=== PATIENT | male | born 1955 | race Caucasian/White ===

== ENCOUNTER 2017-01-22 07:02 | Emergency (ER) | payer MEDICARE, MEDICAID ==
[~2017-01-22 07:02] MED LIST: /MOXI40TA PO; ALDA25TA2 PO; BUSP30TA PO; LASI20TA PO; PAXI30TA2 PO; PHEN32.4 PO; VENL37TA PO; ZEST10TA4 PO
[2017-01-22] MEDS ORDERED: FE G325T PO (07:50)
[2017-01-22] MEDS ORDERED: LOPR1TAB6 PO (07:50)
[2017-01-22] MEDS ORDERED: GABA-283 PO (07:50)
[2017-01-22] MEDS ORDERED: FLOM5CAP PO (07:50)
[2017-01-22] MEDS ORDERED: STOO100C PO (07:50)
[2017-01-22] MEDS ORDERED: ASPI325T PO (07:50)
[2017-01-22 08:01] LABS: BASO % 0.8 % (0.0-1.0); EOS # 0.2 K/mm3 (0.0-0.50); EOS % 3.7 % (0.0-3.0); LARGE UNSTAINED CELL # 0.1 K/mm3 (0.0-0.4); LARGE UNSTAINED CELL % 1.7 % (0.0-4.0); LYMPH # 1.1 K/mm3 (1.5-4.5); LYMPH % 19.9 % (24.0-44.0); MEAN CORPUSCULAR HEMOGLOBIN 32.3 pg (27.0-33.0); MEAN CORPUSCULAR HGB CONC 34.6 g/dl (32.0-36.5); MEAN CORPUSCULAR VOLUME 93.3 fl (80.0-96.0); MONO # 0.4 K/mm3 (0.0-0.8); MONO % 7.3 % (0.0-5.0); NEUTROPHILS # 3.3 K/mm3 (1.8-7.7); NEUTROPHILS % 66.6 % (36.0-66.0); PLATELET COUNT, AUTOMATED 190 k/mm3 (150-450); RED CELL DISTRIBUTION WIDTH 12.2 % (11.5-14.5)
[2017-01-22 08:11] LABS: ALBUMIN 3.5 GM/DL (3.2-5.2); ALBUMIN/GLOBULIN RATIO 1.06 (1.00-1.93); ALKALINE PHOSPHATASE 116 U/L (45-117); ALT/SGPT 13 U/L (12-78); ANION GAP 8 MEQ/L (8-16); AST/SGOT 12 U/L (15-37); BILIRUBIN,DIRECT < 0.1 MG/DL (0.0-0.2); BILIRUBIN,TOTAL 0.3 MG/DL (0.2-1.0); BLOOD UREA NITROGEN 16 MG/DL (7-18); CALCIUM LEVEL 8.3 MG/DL (8.8-10.2); CARBON DIOXIDE LEVEL 29 MEQ/L (21-32); CHLORIDE LEVEL 105 MEQ/L (98-107); CREATININE FOR GFR 0.95 MG/DL (0.70-1.30); GLOMERULAR FILTRATION RATE > 60.0 (>49); GLUCOSE, FASTING 95 MG/DL (80-110); PHENOBARBITAL LEVEL 19.9 UG/ML (15.0-40.0); SODIUM LEVEL 142 MEQ/L (136-145); TOTAL PROTEIN 6.8 GM/DL (6.4-8.2)
--- NOTE | 2017-01-22 08:47 | REP ---
Emergency noncontrast head CT. History: Seizure. No comparison head CTs. Findings: Digital client services administrator radiographs are unremarkable. Bone window settings demonstrate an intact bony calvarium. No skull fracture or bony destructive lesion is appreciated. There is extensive and bilateral ossification of the cartilages of the ear pinna. This does not appear to involve the external ear canal. Petrous bone anatomy appears normal. No intraorbital abnormality is seen. There is minimal diffuse cerebral atrophy. There is no evidence of intracranial hemorrhage. No extra-axial fluid collection is seen. No mass, midline shift, infarct or other abnormality is seen. A cavum septum pellucidum is noted. This is a normal variant. Impression: No acute intracranial abnormality. Extensive bilateral ear cartilage ossification. Bilaterally, incidental finding. This has been described in association with mechanical tissue injury, exposure to cold, inflammatory conditions, and endocrinopathy such as adrenal insufficiency. "Petrified auricle". Signed by Hector Bates MD 01/22/2017 05:19 P
[2017-01-22] MEDS ORDERED: PHENobarbital 30 MG TAB PO ONE ×2 (09:00)
[2017-01-22 10:00] VITALS: BP 119/72
== END 2017-01-22 10:00 | disposition home or self-care (01) ==
LOC: EDBD 07:02 → M ED 09:36
DX: R56.9 Unspecified convulsions (principal); Z79.899 Other long term (current) drug therapy; Z79.82 Long term (current) use of aspirin; Z88.1 Allergy status to other antibiotic agents; Z88.7 Allergy status to serum and vaccine

== ENCOUNTER → 2017-04-02 | Outpatient (CLI) | payer MEDICARE, MEDICAID ==
[~2017-04-02] MED LIST changes: +ASPI325T PO; +FE G325T PO; +FLOM5CAP PO; +GABA-283 PO; +LOPR1TAB6 PO; +STOO100C PO
--- NOTE | 2017-04-02 09:43 | REP ---
Clinical: Mass. Technique: AP and lateral views of the left forearm. Findings: A posteromedial area of soft tissue swelling and infiltration is appreciated without subcutaneous emphysema or radiodense foreign body. The osseous structures are intact and normal. Impression: Area of soft tissue swelling along the posteromedial proximal forearm without subcutaneous emphysema or radiodense foreign body and no associated osseous involvement. Signed by Robbie Carrillo MD 04/02/2017 09:35 A
== END ==
LOC: M WUC 09:12
PROVIDERS: ATTEND Physician Assistant
DX: R22.32 Localized swelling, mass and lump, left upper limb (principal)

== ENCOUNTER → 2017-10-06 | Outpatient (CLI) | payer MEDICARE, MEDICAID ==
[2017-10-06 07:34] LABS: BASO % 0.8 % (0.0-1.0); EOS # 0.2 10^3/uL (0.0-0.50); EOS % 4.2 % (0.0-3.0); IMMATURE GRANULOCYTE % 0.2 % (0-0); LYMPH # 1.1 10^3/uL (1.5-4.5); LYMPH % 20.7 % (24.0-44.0); MEAN CORPUSCULAR HEMOGLOBIN 32.1 pg (27.0-33.0); MEAN CORPUSCULAR VOLUME 91.8 fl (80.0-96.0); MONO # 0.5 10^3/uL (0.0-0.8); MONO % 8.7 % (0.0-5.0); NEUTROPHILS # 3.5 10^3/uL (1.8-7.7); NEUTROPHILS % 65.4 % (36.0-66.0); PLATELET COUNT, AUTOMATED 226 10^3/uL (150-450); RED CELL DISTRIBUTION WIDTH 12.1 % (11.5-14.5); WHITE BLOOD COUNT 5.3 10^3/uL (4.0-10.0)
== END ==
LOC: M LAB 07:16
PROVIDERS: ATTEND Physician Assistant Medical
DX: R56.9 Unspecified convulsions (principal)

== ENCOUNTER → 2018-04-13 | Outpatient (CLI) | payer MEDICARE, MEDICAID ==
[2018-04-13 08:08] LABS: BASO # 0.1 10^3/uL (0.0-0.2); EOS # 0.2 10^3/uL (0.0-0.50); EOS % 2.9 % (0.0-3.0); HEMATOCRIT 43.5 % (42.0-52.0); HEMOGLOBIN 15.2 g/dl (13.5-17.5); IMMATURE GRANULOCYTE % 0.7 % (0-3.0); LYMPH # 1.3 10^3/uL (1.5-4.5); LYMPH % 18.9 % (24.0-44.0); MEAN CORPUSCULAR HEMOGLOBIN 31.9 pg (27.0-33.0); MEAN CORPUSCULAR HGB CONC 34.9 g/dl (32.0-36.5); MEAN CORPUSCULAR VOLUME 91.2 fl (80.0-96.0); MONO # 0.5 10^3/uL (0.0-0.8); MONO % 7.7 % (0.0-5.0); NEUTROPHILS # 4.8 10^3/uL (1.8-7.7); NEUTROPHILS % 68.8 % (36.0-66.0); PLATELET COUNT, AUTOMATED 281 10^3/uL (150-450); RED BLOOD COUNT 4.77 10^6/uL (4.30-6.10); WHITE BLOOD COUNT 6.9 10^3/uL (4.0-10.0)
[2018-04-13 08:43] LABS: PHENOBARBITAL LEVEL 21.3 UG/ML (15.0-40.0)
[2018-04-13 09:47] LABS: FOLATE 15.6 NG/ML; VITAMIN B12 LEVEL 375 PG/ML
== END ==
LOC: M LAB 07:07
DX: R56.9 Unspecified convulsions (principal); R53.83 Other fatigue
CPT/HCPCS: 82746

== ENCOUNTER → 2018-10-25 | Outpatient (CLI) | payer MEDICARE, MEDICAID ==
[~2018-10-25] MED LIST changes: +FLOM0.4C39 PO; -FLOM5CAP PO; -GABA-283 PO; +GABA-845 PO
== END ==
LOC: M WUC 08:21
PROVIDERS: ATTEND Physician Assistant Medical
DX: R56.9 Unspecified convulsions (principal); Z51.81 Encounter for therapeutic drug level monitoring; Z79.899 Other long term (current) drug therapy

== ENCOUNTER → 2019-02-08 | Outpatient (CLI) | payer MEDICARE, MEDICAID ==
[~2019-02-08] MED LIST changes: -/MOXI40TA PO; +AVEL1TAB2 PO
[2019-02-08 08:02] LABS: HEMATOCRIT 44.6 % (42.0-52.0); HEMOGLOBIN 15.3 g/dl (13.5-17.5); MEAN CORPUSCULAR HEMOGLOBIN 31.7 pg (27.0-33.0); MEAN CORPUSCULAR HGB CONC 34.3 g/dl (32.0-36.5); MEAN CORPUSCULAR VOLUME 92.5 fl (80.0-96.0); PLATELET COUNT, AUTOMATED 241 10^3/uL (150-450); RED BLOOD COUNT 4.82 10^6/uL (4.30-6.10); WHITE BLOOD COUNT 5.2 10^3/uL (4.0-10.0)
[2019-02-08 08:19] LABS: ALBUMIN 3.8 GM/DL (3.2-5.2); ALT/SGPT 17 U/L (12-78); BILIRUBIN,TOTAL 0.4 MG/DL (0.2-1.0); BLOOD UREA NITROGEN 11 MG/DL (7-18); CALCIUM LEVEL 8.4 MG/DL (8.8-10.2); CARBON DIOXIDE LEVEL 29 MEQ/L (21-32); CHLORIDE LEVEL 108 MEQ/L (98-107); CHOLESTEROL LEVEL 155 MG/DL (<200); CHOLESTEROL RISK RATIO 2.583 (<5); GLOMERULAR FILTRATION RATE > 60.0 (>49); GLUCOSE, FASTING 88 MG/DL (70-100); HDL CHOLESTEROL 60 MG/DL (>40); LDL CHOLESTEROL 72 MG/DL (<100); NON-HDL-C 95 MG/DL; PHENOBARBITAL LEVEL 19.6 UG/ML (15.0-40.0); POTASSIUM SERUM 4.3 MEQ/L (3.5-5.1); SODIUM LEVEL 141 MEQ/L (136-145); TOTAL PROTEIN 6.8 GM/DL (6.4-8.2); TRIGLYCERIDES LEVEL 114 MG/DL (<150)
== END ==
LOC: M LAB 07:01
PROVIDERS: ATTEND Family Medicine
DX: Z51.81 Encounter for therapeutic drug level monitoring (principal); Z79.899 Other long term (current) drug therapy

== ENCOUNTER → 2019-05-02 | Outpatient (CLI) | payer MEDICARE, MEDICAID ==
[~2019-05-02] MED LIST changes: +ASPI-1 PO; -ASPI325T PO
== END ==
LOC: M WUC 08:28
PROVIDERS: ATTEND Physician Assistant Medical
DX: G40.89 Other seizures (principal)

== ENCOUNTER → 2019-05-21 | Outpatient (CLI) | payer MEDICARE, MEDICAID ==
[~2019-05-21] MED LIST changes: +MM S100C PO; -STOO100C PO
== END ==
LOC: M WUC 10:08
PROVIDERS: ATTEND Family Medicine
DX: E55.9 Vitamin D deficiency, unspecified (principal)

== ENCOUNTER → 2019-08-08 | Outpatient (REF) | payer MEDICARE, MEDICAID | LOC: M LAB REF 09:19 | PROVIDERS: ATTEND Physician Assistant | DX: N39.0 Urinary tract infection, site not specified (principal) ==

== ENCOUNTER → 2019-08-17 | Outpatient (REF) | payer MEDICARE, MEDICAID ==
[2019-08-17 14:01] LABS: APPEARANCE, URINE CLOUDY (CLEAR); BACTERIA, URINE AUTO 2+ (NEGATIVE); BILIRUBIN, URINE AUTO NEGATIVE (NEGATIVE); BLOOD, URINE BLOOD NEGATIVE (NEGATIVE); COLOR, URINE YELLOW (YELLOW); GLUCOSE, URINE (UA) AUTO NEGATIVE (NEGATIVE); KETONE, URINE AUTO NEGATIVE (NEGATIVE); LEUKOCYTE ESTERASE, URINE AUTO 3+ (NEGATIVE); MUCUS, URINE SMALL (NEGATIVE); NITRITE, URINE AUTO POSITIVE (NEGATIVE); PROTEIN, URINE AUTO 1+ mg/dL (NEGATIVE); RBC, URINE AUTO 4 /HPF (0-3); SPECIFIC GRAVITY URINE AUTO 1.015 (1.002-1.035); SQUAMOUS EPITHELIAL CELL UR AU 1 /HPF (0-6); UROBILINOGEN, URINE AUTO 0.2 mg/dL (0.0-2.0); WBC, URINE AUTO TNTC /HPF (0-3)
== END ==
LOC: M LAB REF 13:00
PROVIDERS: ATTEND Family Medicine
DX: R30.0 Dysuria (principal)

== ENCOUNTER → 2019-08-30 | Outpatient (REF) | payer MEDICARE, MEDICAID ==
[2019-08-30 20:37] LABS: APPEARANCE, URINE CLEAR (CLEAR); BACTERIA, URINE AUTO NEGATIVE (NEGATIVE); BILIRUBIN, URINE AUTO NEGATIVE (NEGATIVE); BLOOD, URINE BLOOD NEGATIVE (NEGATIVE); COLOR, URINE STRAW (YELLOW); GLUCOSE, URINE (UA) AUTO NEGATIVE (NEGATIVE); KETONE, URINE AUTO NEGATIVE (NEGATIVE); LEUKOCYTE ESTERASE, URINE AUTO NEGATIVE (NEGATIVE); MUCUS, URINE SMALL (NEGATIVE); NITRITE, URINE AUTO NEGATIVE (NEGATIVE); PROTEIN, URINE AUTO NEGATIVE (NEGATIVE); RBC, URINE AUTO 0 /HPF (0-3); SPECIFIC GRAVITY URINE AUTO 1.006 (1.002-1.035); SQUAMOUS EPITHELIAL CELL UR AU 0 /HPF (0-6); UROBILINOGEN, URINE AUTO 0.2 mg/dL (0.0-2.0); WBC, URINE AUTO 0 /HPF (0-3)
== END ==
LOC: M LAB REF 09:21
PROVIDERS: ATTEND Family Medicine
DX: N39.0 Urinary tract infection, site not specified (principal)

== ENCOUNTER → 2019-09-15 | Outpatient (CLI) | payer MEDICARE, MEDICAID ==
[2019-09-15 13:03] LABS: BLOOD UREA NITROGEN 11 MG/DL (7-18); CALCIUM LEVEL 8.5 MG/DL (8.8-10.2); CARBON DIOXIDE LEVEL 31 MEQ/L (21-32); CHLORIDE LEVEL 105 MEQ/L (98-107); CREATININE FOR GFR 0.95 MG/DL (0.70-1.30); GLOMERULAR FILTRATION RATE > 60.0 (>49); GLUCOSE, FASTING 72 MG/DL (70-100); MAGNESIUM LEVEL 1.8 MG/DL (1.8-2.4); POTASSIUM SERUM 4.2 MEQ/L (3.5-5.1); SODIUM LEVEL 140 MEQ/L (136-145)
== END ==
LOC: M WUC 10:17
PROVIDERS: ATTEND Family Medicine
DX: R25.9 Unspecified abnormal involuntary movements (principal)

== ENCOUNTER → 2019-10-15 | Outpatient (CLI) | payer MEDICARE, MEDICAID | LOC: M WUC 13:19 | PROVIDERS: ATTEND Physician Assistant Medical | DX: R56.9 Unspecified convulsions (principal) ==

== ENCOUNTER → 2020-07-19 | Outpatient (CLI) | payer MEDICARE, MEDICAID | LOC: M WUC 15:28 | PROVIDERS: ATTEND Physician Assistant Medical | DX: Z51.81 Encounter for therapeutic drug level monitoring (principal); Z79.899 Other long term (current) drug therapy ==

== ENCOUNTER → 2020-08-29 | Outpatient (CLI) | payer MEDICARE, MEDICAID ==
[2020-08-29 07:31] LABS: HEMATOCRIT 46.5 % (42.0-52.0); HEMOGLOBIN 15.8 g/dl (13.5-17.5); MEAN CORPUSCULAR HEMOGLOBIN 31.2 pg (27.0-33.0); MEAN CORPUSCULAR VOLUME 91.7 fl (80.0-96.0); PLATELET COUNT, AUTOMATED 253 10^3/uL (150-450); RED BLOOD COUNT 5.07 10^6/uL (4.30-6.10); WHITE BLOOD COUNT 5.7 10^3/uL (4.0-10.0)
[2020-08-29 07:58] LABS: ALBUMIN 3.7 GM/DL (3.2-5.2); ALT/SGPT 16 U/L (12-78); BILIRUBIN,TOTAL 0.4 MG/DL (0.2-1.0); BLOOD UREA NITROGEN 11 MG/DL (7-18); CALCIUM LEVEL 8.4 MG/DL (8.8-10.2); CARBON DIOXIDE LEVEL 25 MEQ/L (21-32); CHLORIDE LEVEL 108 MEQ/L (98-107); CHOLESTEROL LEVEL 164 MG/DL (<200); CHOLESTEROL RISK RATIO 2.827 (<5); CREATININE FOR GFR 0.92 MG/DL (0.70-1.30); GLOMERULAR FILTRATION RATE > 60.0 (>49); GLUCOSE, FASTING 92 MG/DL (70-100); HDL CHOLESTEROL 58 MG/DL (>40); LDL CHOLESTEROL 84 MG/DL (<100); NON-HDL-C 106 MG/DL; PHENOBARBITAL LEVEL 18.3 UG/ML (15.0-40.0); POTASSIUM SERUM 4.1 MEQ/L (3.5-5.1); PROSTATIC SPECIFIC AG MONITOR 0.44 NG/ML (< 4.00); SODIUM LEVEL 140 MEQ/L (136-145); TOTAL PROTEIN 6.8 GM/DL (6.4-8.2); TRIGLYCERIDES LEVEL 110 MG/DL (<150)
[2020-08-29 09:01] LABS: TOTAL 25(OH) VITAMIN D 111.4 NG/ML (30.0-100.0)
== END ==
LOC: M LAB 06:44
PROVIDERS: ATTEND Family Medicine
DX: Z51.81 Encounter for therapeutic drug level monitoring (principal); Z79.899 Other long term (current) drug therapy; Z12.5 Encounter for screening for malignant neoplasm of prostate

== ENCOUNTER 2020-12-06 21:16 | Inpatient (IN) | payer MEDICARE, MEDICAID ==
[~2020-12-06] VITALS: Ht 172.7 cm; Wt 85.0 kg
[~2020-12-06 21:16] MED LIST changes: -ACET-907 PO; -ACET1TAB55 PO; -DEXA6TAB PO; -FERR32TA PO; -FURO20TA2 PO; -GABA-282 PO; -LEVO500T3 PO; -LISI-542 PO; -METO25TA4 PO; -PARO40TA3 PO; -PHEN32.44; -PHEN32.44 PO
--- OUTSIDE RECORDS SUMMARY | 2020-12-06 21:21 | CCD | Continuity of Care Document ---
Author Author Rodri STANTON PA-C Organization Unknown Address [facility] [address] [place] [address] Phone [phone] Problems Active Problems Provider Date Severe intellectual disability Benito Stanton PA-C Onset: Social History Type Date Description Comments Sex Unknown Allergies, Adverse Reactions, Alerts Active Allergies Reaction Severity Comments Date Azithromycin 04/09/2018 Doxycycline 04/09/2018 Pertussis Vaccine 04/09/2018 NKFA 04/09/2018 NKEA 04/09/2018 Medications Active Medications SIG Qnty Indications Ordering Provide r Date Paroxetine HCL 40mg Tablets 1 by mouth every day 30tarika Sullivan MD 08/23/2018 Buspirone HCL 30mg Tablets 1 tab by mouth twice a day every in the morning and 4pm 60tabs Hector Sullivan MD Colace 100mg Capsules Unknown Lopressor 50mg Tablets Unknown Aspirin Ec 325mg Tablets DR Unknown Phenobarbital 64.8mg Tablets Unknown Lasix 20mg Tablets Unknown Ferrous Gluconate 324(37.5Fe) mg T ablets Unknown Lisinopril 5mg Tablets Unknown Gabapentin 300mg Capsules 1 by mouth three times a day in in the morning, 4pm, and at bedtime. 90caps Hector Sullivan MD Flomax 0.4mg Capsules Unknown Immunizations Description No Information Available Vital Signs Date Vital Result Comment 04/09/2018 11:49am BP Systolic Sitting 142 mmHg BP Diastolic Sitting 85 mmHg Heart Rate 58 /min Respiratory Rate 20 /min O2 % BldC Oximetry 97 % Weight 187.00 lb Weight 84.823 kg Height 65 inches 5'5" BMI (Body Mass Index) 31.1 kg/m2 BSA (Body Surface Area) 1.92 m2 Results Description No Information Available Procedures Description No Information Available Medical Devices Description No Information Available Encounters Type Date Location Provider Dx Diagnosis Office Visit 10/11/2020 10:20a [facility] Benito Stanton PA-C F72 Severe intellectual disabilities Assessments Date Code Description Provider 10/11/2020 F72 Severe intellectual disabilities Benito Stanton PA-C 06/11/2020 F72 Severe intellectual disabilities Benito Stanton PA-C Plan of Treatment Future Appointment(s):* 02/11/2021 9:00 am - Benito Stanton PA-C at [facility] Functional Status Description No Information Available Mental Status Description No Information Available Referrals Description No Information Available
--- OUTSIDE RECORDS SUMMARY | 2020-12-06 21:21 | CCD ---
Author Author [facility] Organization [facility] Address Unknown Phone Unavailable Care Team Providers Care Electric Vehicle Electrician Name Role Phone Fons, M Phylicia SAND CONDITIONER Unavailable Unavailable Fons, M Hpylicia SAND CONDITIONER Unavailable Unavailable Fons, M Phylicia SAND CONDITIONER Unavailable Unavailable Fons, M Phylicia SAND CONDITIONER Unavailable Unavailable Fons, M Phylicia SAND CONDITIONER Unavailable Unavailable Fons, M Phylicia SAND CONDITIONER Unavailable Unavailable Fons, M Phylicia SAND CONDITIONER Unavailable Unavailable Fons, M Phylicia SAND CONDITIONER Unavailable Unavailable Fons, M Phylicia SAND CONDITIONER Unavailable Unavailable Fons, M Phylicia SAND CONDITIONER Unavailable Unavailable Fons, M Phylicia SAND CONDITIONER Unavailable Unavailable Fons, M Phylicia SAND CONDITIONER Unavailable Unavailable Fons, M Phylicia SAND CONDITIONER Unavailable Unavailable Fons, M Phylicia SAND CONDITIONER Unavailable Unavailable Fons, M Phylicia SAND CONDITIONER Unavailable Unavailable Fons, M Phylicia SAND CONDITIONER Unavailable Unavailable Fons, M Phylicia SAND CONDITIONER Unavailable Unavailable Fons, M Phylicia SAND CONDITIONER Unavailable Unavailable Fons, M Phylicia SAND CONDITIONER Unavailable Unavailable Fons, M Phylicia SAND CONDITIONER Unavailable Unavailable Fons, M Phylicia SAND CONDITIONER Unavailable Unavailable Fons, M Phylicia SAND CONDITIONER Unavailable Unavailable Fons, M Phylicia SAND CONDITIONER Unavailable Unavailable Fons, M Phylicia SAND CONDITIONER Unavailable Unavailable Fons, M Phylicia SAND CONDITIONER Unavailable Unavailable Fons, M Phylicia SAND CONDITIONER Unavailable Unavailable Fons, M Phylicia SAND CONDITIONER Unavailable Unavailable Fons, M Phylicia SAND CONDITIONER Unavailable Unavailable Fons, M Phylicia SAND CONDITIONER Unavailable Unavailable Fons, M Phylicia SAND CONDITIONER Unavailable Unavailable Fons, M Phylicia SAND CONDITIONER Unavailable Unavailable Fons, M Phylicia SAND CONDITIONER Unavailable Unavailable Fons, M Phylicia SAND CONDITIONER Unavailable Unavailable Fons, M Phylicia SAND CONDITIONER Unavailable Unavailable Fons, M Phylicia SAND CONDITIONER Unavailable Unavailable Fons, M Phylicia SAND CONDITIONER Unavailable Unavailable Fons, M Phylicia SAND CONDITIONER Unavailable Unavailable Fons, M Phylicia SAND CONDITIONER Unavailable Unavailable Fons, M Phylicia SAND CONDITIONER Unavailable Unavailable Fons, M Phylicia SAND CONDITIONER Unavailable Unavailable Fons, M Phylicia SAND CONDITIONER Unavailable Unavailable Fons, M Phylicia SAND CONDITIONER Unavailable Unavailable Fons, M Phylicia SAND CONDITIONER Unavailable Unavailable Fons, M Phylicia SAND CONDITIONER Unavailable Unavailable Fons, M Phylicia SAND CONDITIONER Unavailable Unavailable Fons, M Phylicia SAND CONDITIONER Unavailable Unavailable Fons, M Phylicia SAND CONDITIONER Unavailable Unavailable Fons, M Phylicia SAND CONDITIONER Unavailable Unavailable Fons, M Phylicia SAND CONDITIONER Unavailable Unavailable Fons, M Phylicia SAND CONDITIONER Unavailable Unavailable Fons, M Phylicia SAND CONDITIONER Unavailable Unavailable Fons, M Phylicia SAND CONDITIONER Unavailable Unavailable Fons, M Phylicia SAND CONDITIONER Unavailable Unavailable Fons, M Phylicia SAND CONDITIONER Unavailable Unavailable Trickey, J Sary PA Unavailable Unavailable Trickey, J Sary PA Unavailable Unavailable Trickey, J Sary PA Unavailable Unavailable Trickey, J Sary PA Unavailable Unavailable Trickey, J Sary PA Unavailable Unavailable Trickey, J Sary PA Unavailable Unavailable Trickey, J Sary PA Unavailable Unavailable Trickey, J Sary PA Unavailable Unavailable Trickey, J Sary PA Unavailable Unavailable Trickey, J Sary PA Unavailable Unavailable Trickey, J Sary PA Unavailable Unavailable Trickey, J Sary PA Unavailable Unavailable Trickey, J Sary PA Unavailable Unavailable Trickey, J Sary PA Unavailable Unavailable Trickey, J Sary PA Unavailable Unavailable Trickey, J Sary PA Unavailable Unavailable Trickey, J Sary PA Unavailable Unavailable Trickey, J Sary PA Unavailable Unavailable Trickey, J Sary PA Unavailable Unavailable Trickey, J Sary PA Unavailable Unavailable Trickey, J Sary PA Unavailable Unavailable Trickey, J Sary PA Unavailable Unavailable Trickey, J Sary PA Unavailable Unavailable Trickey, J Sary PA Unavailable Unavailable Trickey, J Sary PA Unavailable Unavailable Trickey, J Sary PA Unavailable Unavailable Trickey, J Sary PA Unavailable Unavailable Trickey, J Sary PA Unavailable Unavailable Trickey, J Sary PA Unavailable Unavailable Trickey, J Sary PA Unavailable Unavailable Trickey, J Sary PA Unavailable Unavailable Trickey, J Sary PA Unavailable Unavailable Trickey, J Sary PA Unavailable Unavailable Trickey, J Sary PA Unavailable Unavailable Trickey, J Sary PA Unavailable Unavailable Trickey, J Sary PA Unavailable Unavailable Trickey, J Sary PA Unavailable Unavailable Trickey, J Sary PA Unavailable Unavailable Trickey, J Sary PA Unavailable Unavailable Trickey, J Sary PA Unavailable Unavailable Trickey, J Sary PA Unavailable Unavailable Trickey, J Sary PA Unavailable Unavailable Trickey, J Sary PA Unavailable Unavailable Trickey, J Sary PA Unavailable Unavailable Trickey, J Sary PA Unavailable Unavailable Trickey, J Sary PA Unavailable Unavailable Trickey, J Sary PA Unavailable Unavailable Trickey, J Sary PA Unavailable Unavailable Trickey, J Sary PA Unavailable Unavailable Trickey, J Sary PA Unavailable Unavailable Trickey, J Sary PA Unavailable Unavailable Trickey, J Sary PA Unavailable Unavailable CASTRO, J BRAD PA Unavailable Unavailable CASTRO, J BRAD PA Unavailable Unavailable CASTRO, J BRAD PA Unavailable Unavailable CASTRO, J BRAD PA Unavailable Unavailable CASTRO, J BRAD PA Unavailable Unavailable CASTRO, J BRAD PA Unavailable Unavailable CASTRO, J BRAD PA Unavailable Unavailable CASTRO, J BRAD PA Unavailable Unavailable CASTRO, J BRAD PA Unavailable Unavailable CASTRO, J BRAD PA Unavailable Unavailable CASTRO, J BRAD PA Unavailable Unavailable CASTRO, J BRAD PA Unavailable Unavailable CASTRO, J BRAD PA Unavailable Unavailable CASTRO, J BRAD PA Unavailable Unavailable CASTRO, J BRAD PA Unavailable Unavailable CASTRO, J BRAD PA Unavailable Unavailable CASTRO, J BRAD PA Unavailable Unavailable CASTRO, J BRAD PA Unavailable Unavailable CASTRO, J BRAD PA Unavailable Unavailable CASTRO, J BRAD PA Unavailable Unavailable CASTRO, J BRAD PA Unavailable Unavailable CASTRO, J BRAD PA Unavailable Unavailable CASTRO, J BRAD PA Unavailable Unavailable CASTRO, J BRAD PA Unavailable Unavailable CASTRO, J BRAD PA Unavailable Unavailable CASTRO, J BRAD PA Unavailable Unavailable CASTRO, J BRAD PA Unavailable Unavailable Re-disclosure Warning The records that you are about to access may contain information from federally-assisted alcohol or drug abuse programs. If such information is present, then the following federally mandated warning applies: This information has been disclosed to you from records protected by federal confidentiality rules (42 CFR part 2). The federal rules prohibit you from making any further disclosure of this information unless further disclosure is expressly permitted by the written consent of the person to whom it pertains or as otherwise permitted by 42 CFR part 2. A general authorization for the release of medical or other information is NOT sufficient for this purpose. The Federal rules restrict any use of the information to criminally investigate or prosecute any alcohol or drug abuse patient.The records that you are about to access may contain highly sensitive health information, the redisclosure of which is protected by Article 27-F of the [facility] Public Health law. If you continue you may have access to information: Regarding HIV / AIDS; Provided by facilities licensed or operated by the [facility] Office of Mental Health; or Provided by the [facility] Office for People With Developmental Disabilities. If such information is present, then the following [facility] mandated warning applies: This information has been disclosed to you from confidential records which are protected by state law. State law prohibits you from making any further disclosure of this information without the specific written consent of the person to whom it pertains, or as otherwise permitted by law. Any unauthorized further disclosure in violation of state law may result in a fine or nursing home sentence or both. A general authorization for the release of medical or other information is NOT sufficient authorization for further disc losure. Family History Family Member Name Family Member Gender Family Member Status Date o f Status Description Data Source(s) Unknown Unknown Problem [facility] ([facility]) Encounters Encounter Providers Location Date Indications Data Source(s ) Outpatient Attender: [facility]AD [facility] 10/11 09:20:00 AM EST [facility] ([facility]) Outpatient Attender: Sary SANCHEZ [facility] 07/11/2020 08:15:00 AM EDT [facility] Outpatient Attender: Phylicia [email or web address] 12:00:00 AM EDT - 03/29/2020 10:20:34 AM EDT [facility] Outpatient Attender: [facility]AD [facility] 02/12 10:40:00 AM EDT [facility] ([facility]) Outpatient Attender: Sary SANCHEZ [facility] 10/10/2019 12:45:00 PM EST [facility] Insurance Providers Payer name Policy type / Coverage type Policy ID Covered libertarian ID Covered libertarian's relationship to currie Policy Currie Plan Information SELF PAY ONLY [id number] SP [id number] EMEDNY [id number] SP [id number] MEDICARE [id number] SP [id number] MEDICAID [id number] Brittany [id number] MEDICARE [id number] Brittany [id number] Y22 MEDICAID [id number] SP [id number] Medicaid Medigap Part B [id number] Self [id number] Medicare Part B Medicare Primary [id number] Self [id number] MEDICARE [id number] SP [id number] Medicaid Medigap Part B [id number] Self [id number] Medicare Part B Medicare Primary [id number] Self [id number] Medicaid Medigap Part B [id number] Self [id number] 13S Medicare Part B Medicare Primary [id number] Self [id number] [place]ig[place] Part B [id number] Self [id number] [place] Primary [id number] Self [id number] Medicaid Medigap Part B [id number] Self [id number] 13S Medicare Part B Medicare Primary [id number] Self [id number] [place]ig[place] [id number] Self [id number] [place] Primary [id number] Self [id number] SELF PAY 2 UNAVAILABLE 1 UNAVAILA BLE MEDICARE 4 [id number] 1 [id number] MED[place]ID [place] 3 [id number] S MEDICARE 4 [id number] 1 [id number] MEDICAID S [id number] MEDICARE P [id number] S [id number] Surgeries/Procedures Procedure Description Date Indications Data Source(s) FALLS RISK ASSESSMENT DOCUMENTED 07/11/2020 12:00:00 A M EDT [facility] ([facility], ) Results ID Date Data Source [id number] 07/19/2020 03:30:00 PM EDT [facility] ([facility] ) Name Value Range Interpretation Code Description Data Enedelia rce(s) Supporting Document(s) Phenobarbital [Mass/volume] in Serum or Plasma 17.6 UG/ML 15.0-40.0 [facility] ([facility] ) ID Date Data Source [id number] 10/15/2019 01:22:00 PM EST [facility] ([facility]) Name Value Range Interpretation Code Description Data Enedelia rce(s) Supporting Document(s) Phenobarbital [Mass/volume] in Serum or Plasma 18.7 UG/ML 15.0-40.0 [facility] ([facility]) Procedure Vital Signs ID Date Data Source UNK Name Value Range Interpretation Code Description Data Source(s) Respiratory rate 16 /min 16 /min [facility] ( [facility]) Heart rate 76 /min 76 /min [facility] ([facility]) Diastolic blood pressure 80 mm[Hg] 80 mm[Hg] [facility] ([facility]) Systolic blood pressure 122 mm[Hg] 122 mm[Hg] [facility] ([facility]) Respiratory rate 16 /min 16 /min [facility] ( [facility]) Heart rate 80 /min 80 /min [facility] ([facility]) Diastolic blood pressure 80 mm[Hg] 80 mm[Hg] [facility] ([facility]) Systolic blood pressure 110 mm[Hg] 110 mm[Hg] [facility] ([facility])
[2020-12-06] MEDS ORDERED: PHEN32.44 (21:43)
[2020-12-06] MEDS ORDERED: ACET1TAB55 PO (21:43)
[2020-12-06 22:56] LABS: BASO % 0.6 % (0.0-1.0); EOS % 0.3 % (0.0-3.0); HEMATOCRIT 41.4 % (42.0-52.0); HEMOGLOBIN 13.8 g/dl (13.5-17.5); LYMPH # 0.8 10^3/uL (1.5-5.0); LYMPH % 21.7 % (24.0-44.0); MEAN CORPUSCULAR HEMOGLOBIN 30.8 pg (27.0-33.0); MEAN CORPUSCULAR HGB CONC 33.3 g/dl (32.0-36.5); MEAN CORPUSCULAR VOLUME 92.4 fl (80.0-96.0); MONO # 0.4 10^3/uL (0.0-0.8); MONO % 12.5 % (0.0-5.0); NEUTROPHILS # 2.3 10^3/uL (1.5-8.5); NEUTROPHILS % 64.3 % (36.0-66.0); PLATELET COUNT, AUTOMATED 153 10^3/uL (150-450); RED BLOOD COUNT 4.48 10^6/uL (4.30-6.10); WHITE BLOOD COUNT 3.5 10^3/uL (4.0-10.0)
[2020-12-06 23:11] LABS: INR 0.94; PROTHROMBIN TIME 12.8 SECONDS (12.5-14.3)
[2020-12-06 23:14] LABS: D-DIMER QUANT 621.68 ng/ml (<500)
[2020-12-06 23:25] LABS: ALBUMIN 3.4 GM/DL (3.2-5.2); ALT/SGPT 47 U/L (12-78); BILIRUBIN,DIRECT 0.1 MG/DL (0.0-0.2); BILIRUBIN,TOTAL 0.3 MG/DL (0.2-1.0); BLOOD UREA NITROGEN 17 MG/DL (7-18); C REACTIVE PROTEIN QUANTITATIV 9.41 MG/DL (0.00-0.30); CALCIUM LEVEL 7.8 MG/DL (8.8-10.2); CARBON DIOXIDE LEVEL 26 MEQ/L (21-32); CHLORIDE LEVEL 95 MEQ/L (98-107); CK-MB VALUE MASS 4.1 NG/ML (<3.6); CPK CREATINE PHOSPHOKINASE 268 U/L (39-308); CREATININE FOR GFR 1.04 MG/DL (0.70-1.30); FERRITIN 867 NG/ML (26-388); GLOMERULAR FILTRATION RATE > 60.0 (>49); GLUCOSE, FASTING 84 MG/DL (70-100); LDH LACTATE DEHYDROGENASE 209 U/L (87-241); MB/CK RELATIVE INDEX 1.53 (< OR =4); NT-PRO BNP 514 PG/ML (<125); POTASSIUM SERUM 3.5 MEQ/L (3.5-5.1); SODIUM LEVEL 132 MEQ/L (136-145); THYROXINE (T4) 8.5 UG/DL (4.5-12.0); TOTAL PROTEIN 6.4 GM/DL (6.4-8.2); TROPONIN I < 0.02 NG/ML (< 0.10)
--- NOTE | 2020-12-06 23:35 | REPVR ---
PROCEDURE INFORMATION: Exam: XR Chest, 1 View Exam date and time: 12/06/2020 10:05 PM Age: 65 years old Clinical indication: Chest pain; Type not specified; Additional info: Dyspnea/cough TECHNIQUE: Imaging protocol: XR of the chest Views: 1 view. COMPARISON: No relevant prior studies available. FINDINGS: Limitations: Examination is limited by low inspiratory volume. Lungs: Subtle hazy opacities in the lungs bilaterally. Pleural spaces: Unremarkable. No pleural effusion. No pneumothorax. Heart/Mediastinum: Status post cardiac valve replacement. Heart size is within normal limits. Bones/joints: Unremarkable. IMPRESSION: Subtle hazy opacities in the lungs bilaterally. Pneumonia cannot be excluded. Electronically signed by: Ronal Barbosa On 12/06/2020 23:35:05 PM
[2020-12-07] MEDS ORDERED: dexameTHASONE 20MG/5ML VIAL (J1100 PER 1MG) IV ONE (00:15)
--- OUTSIDE RECORDS SUMMARY | 2020-12-07 00:43 | CCD ---
Author Author [facility] Organization [facility] Address Unknown Phone Unavailable Care Team Providers Care Building Performance Specialist Name Role Phone Fons, M Phylicia LIQUID FLOOR AND WALL APPLIER Unavailable Unavailable Fons, M Phylicia LIQUID FLOOR AND WALL APPLIER Unavailable Unavailable Fons, M Phylicia LIQUID FLOOR AND WALL APPLIER Unavailable Unavailable Fons, M Phylicia LIQUID FLOOR AND WALL APPLIER Unavailable Unavailable Fons, M Phylicia LIQUID FLOOR AND WALL APPLIER Unavailable Unavailable Fons, M Phylicia LIQUID FLOOR AND WALL APPLIER Unavailable Unavailable Fons, M Phylicia LIQUID FLOOR AND WALL APPLIER Unavailable Unavailable Fons, M Phylicia LIQUID FLOOR AND WALL APPLIER Unavailable Unavailable Fons, M Phylicia LIQUID FLOOR AND WALL APPLIER Unavailable Unavailable Fons, M Phylicia LIQUID FLOOR AND WALL APPLIER Unavailable Unavailable Fons, M Phylicia LIQUID FLOOR AND WALL APPLIER Unavailable Unavailable Fons, M Phylicia LIQUID FLOOR AND WALL APPLIER Unavailable Unavailable Fons, M Phylicia LIQUID FLOOR AND WALL APPLIER Unavailable Unavailable Fons, M Phylicia LIQUID FLOOR AND WALL APPLIER Unavailable Unavailable Fons, M Phylicia LIQUID FLOOR AND WALL APPLIER Unavailable Unavailable Fons, M Phylicia LIQUID FLOOR AND WALL APPLIER Unavailable Unavailable Fons, M Phylicia LIQUID FLOOR AND WALL APPLIER Unavailable Unavailable Fons, M Phylicia LIQUID FLOOR AND WALL APPLIER Unavailable Unavailable Fons, M Phylicia LIQUID FLOOR AND WALL APPLIER Unavailable Unavailable Fons, M Phylicia LIQUID FLOOR AND WALL APPLIER Unavailable Unavailable Fons, M Phylicia LIQUID FLOOR AND WALL APPLIER Unavailable Unavailable Fons, M Phylicia LIQUID FLOOR AND WALL APPLIER Unavailable Unavailable Fons, M Phylicia LIQUID FLOOR AND WALL APPLIER Unavailable Unavailable Fons, M Phylicia LIQUID FLOOR AND WALL APPLIER Unavailable Unavailable Fons, M Phylicia LIQUID FLOOR AND WALL APPLIER Unavailable Unavailable Fons, M Phylicia LIQUID FLOOR AND WALL APPLIER Unavailable Unavailable Fons, M Phylicia LIQUID FLOOR AND WALL APPLIER Unavailable Unavailable Fons, M Phylicia LIQUID FLOOR AND WALL APPLIER Unavailable Unavailable Fons, M Phylicia LIQUID FLOOR AND WALL APPLIER Unavailable Unavailable Fons, M Phylicia LIQUID FLOOR AND WALL APPLIER Unavailable Unavailable Fons, M Phylicia LIQUID FLOOR AND WALL APPLIER Unavailable Unavailable Fons, M Phylicia LIQUID FLOOR AND WALL APPLIER Unavailable Unavailable Fons, M Phylicia LIQUID FLOOR AND WALL APPLIER Unavailable Unavailable Fons, M Phylicia LIQUID FLOOR AND WALL APPLIER Unavailable Unavailable Fons, M Phylicia LIQUID FLOOR AND WALL APPLIER Unavailable Unavailable Fons, M Phylicia LIQUID FLOOR AND WALL APPLIER Unavailable Unavailable Fons, M Phylicia LIQUID FLOOR AND WALL APPLIER Unavailable Unavailable Fons, M Phylicia LIQUID FLOOR AND WALL APPLIER Unavailable Unavailable Fons, M Phylicia LIQUID FLOOR AND WALL APPLIER Unavailable Unavailable Fons, M Phylicia LIQUID FLOOR AND WALL APPLIER Unavailable Unavailable Fons, M Phylicia LIQUID FLOOR AND WALL APPLIER Unavailable Unavailable Fons, M Phylicia LIQUID FLOOR AND WALL APPLIER Unavailable Unavailable Fons, M Phylicia LIQUID FLOOR AND WALL APPLIER Unavailable Unavailable Fons, M Phylicia LIQUID FLOOR AND WALL APPLIER Unavailable Unavailable Fons, M Phylicia LIQUID FLOOR AND WALL APPLIER Unavailable Unavailable Fons, M Phylicia LIQUID FLOOR AND WALL APPLIER Unavailable Unavailable Fons, M Phylicia LIQUID FLOOR AND WALL APPLIER Unavailable Unavailable Fons, M Phylicia LIQUID FLOOR AND WALL APPLIER Unavailable Unavailable Fons, M Phylicia LIQUID FLOOR AND WALL APPLIER Unavailable Unavailable Fons, M Phylicia LIQUID FLOOR AND WALL APPLIER Unavailable Unavailable Fons, M Phylicia LIQUID FLOOR AND WALL APPLIER Unavailable Unavailable Fons, M Phylicia LIQUID FLOOR AND WALL APPLIER Unavailable Unavailable Fons, M Phylicia LIQUID FLOOR AND WALL APPLIER Unavailable Unavailable Fons, M Phylicia LIQUID FLOOR AND WALL APPLIER Unavailable Unavailable Trickey, J Sary PA Unavailable [...] is protected by Article 27-F of the [facility] Public Health law. If you continue you may have access to information: Regarding HIV / AIDS; Provided by facilities licensed or operated by the [facility] Office of Mental Health; or Provided by the [facility] Office for People With Developmental Disabilities. If such information is present, then the following [facility] mandated warning applies: This information has [...] law may result in a fine or assisted sentence or both. A general authorization for [...] Family Practice 10/11 09:20:00 AM EST [facility] ([facility]) Outpatient Attender: Sary SANCHEZ [facility] 07/11/2020 08:15:00 AM EDT [facility] Attender: Phylicia HARTLEY [email or web address] 0 12:00:00 AM EDT - 03/29/2020 10:20:34 AM EDT [facility] Outpatient Attender: BRAD SANCHEZ [facility] 02/12 10:40:00 AM EDT [facility] ([facility]) Outpatient Attender: Sary SANCHEZ [facility] 10/10/2019 12:45:00 PM EST [facility] Insurance Providers Payer name Policy type / Coverage type Policy ID Covered alliance party ID Covered alliance party's relationship to currie Policy Currie Plan Information SELF PAY ONLY [id number] SP [id number] EMEDNY [id number] SP [id number] MEDICARE [id number] SP [id number] Y22 MEDICAID [id number] Brittany [id number] MEDICARE [id number] Brittany [id number] Y22 MEDICAID [id number] SP [id number] Medicaid Medigap Part B [id number] Self [id number] 13S Medicare Part B Medicare Primary [id number] Self [id number] MEDICARE [id number] SP [id number] Medicaid Medigap Part B [id number] Self [id number] 13S Medicare Part B Medicare Primary [id number] Self [id number] Medicaid Medigap Part B [id number] Self [id number] 13S Medicare Part B Medicare Primary [id number] Self [id number] [place] Part B [id number] Self [id number] [place] Gov[place] Serv[place] Medicare Primary [id number] Self [id number] Medicaid Medigap Part B [id number] Self [id number] 13S Medicare Part B Medicare Primary [id number] Self [id number] [place] [id number] Self [id number] [place] Gov[place] Primary [id number] Self [id number] SELF PAY 2 UNAVAILABLE 1 UNAVAILA BLE MEDICARE 4 [id number] 1 [id number] 2C1 [place] 3 [id number] S MEDICARE 4 [id number] 1 [id number] 2C1 MEDICAID S [id number] S [id number] MEDICARE P [id number] S [id number] Surgeries/Procedures Procedure Description Date Indications Data Source(s) FALLS RISK ASSESSMENT DOCUMENTED 07/11/2020 12:00:00 A M EDT [facility] ([facility], ) Results ID Date Data Source [id number] 07/19/2020 03:30:00 PM EDT [facility] ([facility] ) Name Value Range Interpretation Code Description Data Enedelia rce(s) Supporting Document(s) Phenobarbital [Mass/volume] in Serum or Plasma 17.6 UG/ML 15.0-40.0 [facility] ([facility], ) ID Date Data Source [id number] 10/15/2019 01:22:00 PM EST [facility] ([facility]) Name Value Range Interpretation Code Description Data Enedelia rce(s) Supporting Document(s) Phenobarbital [Mass/volume] in Serum or Plasma 18.7 UG/ML 15.0-40.0 [facility] ([facility]) Procedure Vital Signs ID Date Data Source UNK Name Value Range Interpretation Code Description Data Source(s) Respiratory rate 16 /min 16 /min [facility] ( [facility]) Heart rate 76 /min 76 /min [facility] ([facility]) Diastolic blood pressure 80 mm[Hg] 80 mm[Hg] [facility] ([facility]) Systolic blood pressure 122 mm[Hg] 122 mm[Hg] M [facility] ([facility]) Respiratory rate 16 /min 16 /min [facility] ( [facility]) Heart rate 80 /min 80 /min [facility] ([facility]) Diastolic blood pressure 80 mm[Hg] 80 mm[Hg] [facility] ([facility]) Systolic blood pressure 110 mm[Hg] 110 mm[Hg] [facility] ([facility])
[2020-12-07] MEDS ORDERED: ACETAMINOPHEN TAB 650MG DOSE (2X325MG) PO ONE (00:45)
[2020-12-07] MEDS ORDERED: VANCOMYCIN HCL 1,310 MG in IV FLUID PLACE HOLDER 1 EA IV SCH (01:00)
[2020-12-07] MEDS ORDERED: MAALOX 30 ML SUSP *UDC PO PRN (01:00)
[2020-12-07] MEDS ORDERED: ACETAMINOPHEN TAB 650MG DOSE (2X325MG) PO PRN (01:00)
[2020-12-07] MEDS ORDERED: MOM 30ML SUSPENSION UDC PO PRN (01:00)
[2020-12-07] MEDS ORDERED: VANCOMYCIN HCL 750 MG, VIAL MATE ADAPTER 1 EACH in D5W 250 ML IV ONE (01:15)
--- NOTE | 2020-12-07 01:46 | HPEPDOC ---
[facility] Medical History & Physical Date of Admission Dec 07, 2020 Date of Service: Dec 07, 2020 Attending Physician: GERMAN HATHAWAY MD History and Physical TIME OF SERVICE: 1:15am CHIEF COMPLAINT: dyspnea HISTORY OF PRESENT ILLNESS: The patient has a developmental disability, the majority of the history was obtained from the [facility] staff person who was accompanying the patient. This 65 yr old M is normally friendly and outgoing, but over the last few days [facility] staff have noticed that he has been quieter, less active, has an unsteady gait and appears to be short of breath; when the checked his O2 sats they were in the 80%s. Several other residents at the facility where he resides have COVID-19. REVIEW OF SYSTEMS: unobtainable bc pt has a developmental disability PAST MEDICAL/ SURGICAL HISTORY: Developmental disability Pulm HTN Severe mitral regurgitation Seizure disorder Appendectomy SOCIAL HISTORY: Doesnt smoke [facility] resident FAMILY HISTORY: unobtainable bc pt has a developmental disability ALLERGIES: Please see below. HOME MEDICATIONS: Please see below. PHYSICAL EXAMINATION: Vital Signs Date Time Temp Pulse Resp B/P (MAP) Pulse Ox O2 Delivery O2 Flow Rate FiO2 12/06/20 21:28 127/69 (88) 12/06/20 21:31 63 97 12/06/20 23:45 19 12/07/20 00:33 102.4 12/07/20 05:45 Room Air GENERAL APPEARANCE: well nourished / well developed HEENT: EOMI /MMM&P CARDIOVASCULAR: RRR/NMRG LUNGS: coughing /breath sounds diminished ABDOMEN: obese / soft & NT MUSCULOSKELETAL: CUAUHTEMOC x 4 NEUROLOGICAL: unable to assess PSYCHIATRIC: alert LABORATORY DATA: Immature Granulocyte % (Auto) 0.6, Neutrophils (%) (Auto) 64.3, Lymphocytes (%) (Auto) 21.7L, Monocytes (%) (Auto) 12.5H, Eosinophils (%) (Auto) 0.3, Basophils (%) (Auto) 0.6, Neutrophils # (Auto) 2.3, Lymphocytes # (Auto) 0.8L, Monocytes # (Auto) 0.4, Eosinophils # (Auto) 0.0, Basophils # (Auto) 0.0, Nucleated Red Blood Cells % (auto) 0.0, Prothrombin Time 12.8, Prothromb Time International Ratio 0.94, D-Dimer, Quantitative 621.68H, Anion Gap 11, Glomerular Filtration Rate > 60.0, Calcium Level 7.8L, Ferritin 867H, Total Bilirubin 0.3, Direct Bilirubin 0.1, Aspartate Amino Transf (AST/SGOT) 39H, Alanine Aminotransferase (ALT/SGPT) 47, Alkaline Phosphatase 73, Lactate Dehydrogenase 209, Total Creatine Kinase 268, Creatine Kinase MB 4.1H, Creatine Kinase MB Relative Index 1.53, Troponin I < 0.02, C-Reactive Protein, Quantitative 9.41H, QY-Vld-U-Type Natriuretic Peptide 514H, Total Protein 6.4, Albumin 3.4, Albumin/Globulin Ratio 1.1, Thyroid Stimulating Hormone (TSH) 4.680H, Thyroxine (T4) 8.5 12/06/20 22:43: SARS Antigen (LFIA) POSITIVEH IMAGING: Chest xray IMPRESSION: Subtle hazy opacities in the lungs bilaterally. Pneumonia cannot be excluded. MICROBIOLOGY: COVID + /Blood CX pending ASSESSMENT: is a 65 yr old [facility] resident with HTN, Pulm HTN, Severe mitral regurgitation and Seizure disorder who was brought in for evaluation of dyspnea, and unsteady gait and found to be hypoxemic; he will be admitted for sepsis 2/2 COVID 19 PNA. PLAN: 1. Sepsis 2/2 COVID-19 PNA SIRS criteria T 102.4 / WBC 3.5 qCSI score = 5 points = low intermediate risk qSOFA score 1 point = not high risk Plan: admit to PCU / continuous pulse ox / supplemental O2 PRN up to 3L with target O2 sats between 92-95% / contact & air borne precautions / f/u repeat plts (if low indicates bad prognosis), CRP (if high indicates bad prognosis), I NR, BMP, fibrinogen, INR, D-dimer, PT, PTT (if patient has DIC indicates bad prognosis), ferritin, LDH, troponins (if elevated will need Echo to r/o viral cardiomyopathy) / VBG to assess the degree of hypoxemia / will start Levofloxacin and Vanc for CAP pending sputum cx, strep pneumo, legionella & mycoplasma, MRSA to r/o bacterial PNA / since he was hypoxemic will start Dexamethasone and Remdesivir / will not give IVF bc he is at risk of developing fluid overload 2. Hyponatremia Likely SIADH 2/2 PNA Plan: f/u Uosmo, Hugh and serum osmol 3. Pulm HTN / Severe mitral regurg Plan: f/u Is and Os & daily weights / hold lasix bc his BP is trending down 3. Seizure disorder Plan: phenobarbital 4.HTN Currently normotensive Plan: hold/ Lasix, Lisinopril / c/w metoprolol to avoid rebound tachycardia 5.Developmental disorder Plan: sitter / Buspirone & paroxetine DVT Px Lovenox and ASA Dispo: home after more than 2 midnights stay Home Medications Scheduled Aspirin (Aspirin) 325 Mg Tab, 325 MG PO DAILY Buspirone HCl (Buspirone HCl) 30 Mg Tablet, 30 MG PO BID 0830, 1600 Docusate Sodium (Stool Softener) 100 Mg Cap, 100 MG PO BID Ferrous Gluconate (Ferrous Gluconate) 324 Mg Tablet, 324 MG PO BID Furosemide (Furosemide) 20 Mg Tablet, 20 MG PO DAILY Gabapentin (Gabapentin) 300 Mg Capsule, 300 MG PO TID Lisinopril (Lisinopril) 5 Mg Tablet, 5 MG PO DAILY Metoprolol Tartrate (Metoprolol Tartrate) 25 Mg Tablet, 12.5 MG PO BID Paroxetine HCl (Paroxetine) 40 Mg Tablet, 40 MG PO DAILY Phenobarbital (Phenobarbital) 32.4 Mg Tablet, 32.4 MG PO DAILY Phenobarbital (Phenobarbital) 32.4 Mg Tablet, 64.8 MG PO QHS Tamsulosin HCl (Flomax) 0.4 Mg Capsule, 0.4 MG PO DAILY Scheduled PRN Acetaminophen (Tylenol) 325 Mg Tablet, 650 MG PO Q4H PRN for PAIN / FEVER Allergies Coded Allergies: azithromycin (Verified Allergy, Severe, 12/06/20) Pertussis Vaccines (Verified Allergy, Intermediate, 12/06/20) doxycycline (Verified Allergy, Intermediate, 12/06/20) A-FIB/CHADSVASC A-FIB History Current/History of A-Fib/PAF?: No Current PO Anticoag Therapy: No GERMAN HATHAWAY MD Dec 07, 2020 01:46
[2020-12-07 02:36] LABS: C REACTIVE PROTEIN QUANTITATIV 8.54 MG/DL (0.00-0.30)
--- OUTSIDE RECORDS SUMMARY | 2020-12-07 02:36 | CCD ---
Author Author [facility] Organization [facility] Address Unknown Phone Unavailable Care Team Providers Care House Supervisor Name Role Phone Fons, M Phylicia HUMAN RESOURCES DEPARTMENT SUPERVISOR Unavailable Unavailable Fons, M Phylicia HUMAN RESOURCES DEPARTMENT SUPERVISOR Unavailable Unavailable Fons, M Phylicia HUMAN RESOURCES DEPARTMENT SUPERVISOR Unavailable Unavailable Fons, M Phylicia HUMAN RESOURCES DEPARTMENT SUPERVISOR Unavailable Unavailable Fons, M Phylicia HUMAN RESOURCES DEPARTMENT SUPERVISOR Unavailable Unavailable Fons, M Phylicia HUMAN RESOURCES DEPARTMENT SUPERVISOR Unavailable Unavailable Fons, M Phylicia HUMAN RESOURCES DEPARTMENT SUPERVISOR Unavailable Unavailable Fons, M Phylicia HUMAN RESOURCES DEPARTMENT SUPERVISOR Unavailable Unavailable Fons, M Phylicia HUMAN RESOURCES DEPARTMENT SUPERVISOR Unavailable Unavailable Fons, M Phylicia HUMAN RESOURCES DEPARTMENT SUPERVISOR Unavailable Unavailable Fons, M Phylicia HUMAN RESOURCES DEPARTMENT SUPERVISOR Unavailable Unavailable Fons, M Phylicia HUMAN RESOURCES DEPARTMENT SUPERVISOR Unavailable Unavailable Fons, M Phylicia HUMAN RESOURCES DEPARTMENT SUPERVISOR Unavailable Unavailable Fons, M Phylicia HUMAN RESOURCES DEPARTMENT SUPERVISOR Unavailable Unavailable Fons, M Phylicia HUMAN RESOURCES DEPARTMENT SUPERVISOR Unavailable Unavailable Fons, M Phylicia HUMAN RESOURCES DEPARTMENT SUPERVISOR Unavailable Unavailable Fons, M Phylicia HUMAN RESOURCES DEPARTMENT SUPERVISOR Unavailable Unavailable Fons, M Phylicia HUMAN RESOURCES DEPARTMENT SUPERVISOR Unavailable Unavailable Fons, M Phylicia HUMAN RESOURCES DEPARTMENT SUPERVISOR Unavailable Unavailable Fons, M Phylicia HUMAN RESOURCES DEPARTMENT SUPERVISOR Unavailable Unavailable Fons, M Phylicia HUMAN RESOURCES DEPARTMENT SUPERVISOR Unavailable Unavailable Fons, M Phylicia HUMAN RESOURCES DEPARTMENT SUPERVISOR Unavailable Unavailable Fons, M Phylicia HUMAN RESOURCES DEPARTMENT SUPERVISOR Unavailable Unavailable Fons, M Phylicia HUMAN RESOURCES DEPARTMENT SUPERVISOR Unavailable Unavailable Fons, M Phylicia HUMAN RESOURCES DEPARTMENT SUPERVISOR Unavailable Unavailable Fons, M Phylicia HUMAN RESOURCES DEPARTMENT SUPERVISOR Unavailable Unavailable Fons, M Phylicia HUMAN RESOURCES DEPARTMENT SUPERVISOR Unavailable Unavailable Fons, M Phylicia HUMAN RESOURCES DEPARTMENT SUPERVISOR Unavailable Unavailable Fons, M Phylicia HUMAN RESOURCES DEPARTMENT SUPERVISOR Unavailable Unavailable Fons, M Phylicia HUMAN RESOURCES DEPARTMENT SUPERVISOR Unavailable Unavailable Fons, M Phylicia HUMAN RESOURCES DEPARTMENT SUPERVISOR Unavailable Unavailable Fons, M Phylicia HUMAN RESOURCES DEPARTMENT SUPERVISOR Unavailable Unavailable Fons, M Phylicia HUMAN RESOURCES DEPARTMENT SUPERVISOR Unavailable Unavailable Fons, M Phylicia HUMAN RESOURCES DEPARTMENT SUPERVISOR Unavailable Unavailable Fons, M Phylicia HUMAN RESOURCES DEPARTMENT SUPERVISOR Unavailable Unavailable Fons, M Phylicia HUMAN RESOURCES DEPARTMENT SUPERVISOR Unavailable Unavailable Fons, M Phylicia HUMAN RESOURCES DEPARTMENT SUPERVISOR Unavailable Unavailable Fons, M Phylicia HUMAN RESOURCES DEPARTMENT SUPERVISOR Unavailable Unavailable Fons, M Phylicia HUMAN RESOURCES DEPARTMENT SUPERVISOR Unavailable Unavailable Fons, M Phylicia HUMAN RESOURCES DEPARTMENT SUPERVISOR Unavailable Unavailable Fons, M Phylicia HUMAN RESOURCES DEPARTMENT SUPERVISOR Unavailable Unavailable Fons, M Phylicia HUMAN RESOURCES DEPARTMENT SUPERVISOR Unavailable Unavailable Fons, M Phylicia HUMAN RESOURCES DEPARTMENT SUPERVISOR Unavailable Unavailable Fons, M Phylicia HUMAN RESOURCES DEPARTMENT SUPERVISOR Unavailable Unavailable Fons, M Phylicia HUMAN RESOURCES DEPARTMENT SUPERVISOR Unavailable Unavailable Fons, M Phylicia HUMAN RESOURCES DEPARTMENT SUPERVISOR Unavailable Unavailable Fons, M Phylicia HUMAN RESOURCES DEPARTMENT SUPERVISOR Unavailable Unavailable Fons, M Phylicia HUMAN RESOURCES DEPARTMENT SUPERVISOR Unavailable Unavailable Fons, M Phylicia HUMAN RESOURCES DEPARTMENT SUPERVISOR Unavailable Unavailable Fons, M Phylicia HUMAN RESOURCES DEPARTMENT SUPERVISOR Unavailable Unavailable Fons, M Phylicia HUMAN RESOURCES DEPARTMENT SUPERVISOR Unavailable Unavailable Fons, M Phylicia HUMAN RESOURCES DEPARTMENT SUPERVISOR Unavailable Unavailable Fons, M Phylicia HUMAN RESOURCES DEPARTMENT SUPERVISOR Unavailable Unavailable Fons, M Phylicia HUMAN RESOURCES DEPARTMENT SUPERVISOR Unavailable Unavailable Trickey, J Sary PA Unavailable [...] J Sary PA Unavailable Unavailable Trickey, J Asry PA Unavailable Unavailable Trickey, J Sary PA [...] is protected by Article 27-F of the [facility] Public Health law. If you continue you may have access to information: Regarding HIV / AIDS; Provided by facilities licensed or operated by the [facility] Office of Mental Health; or Provided by the [facility] Office for People With Developmental Disabilities. If such information is present, then the following [facility] mandated warning applies: This information has been [...] law may result in a fine or half-way sentence or both. A general authorization for [...] Family Practice 10/11 09:20:00 AM EST [facility] ([facility]) Outpatient Attender: Sary SANCHEZ [facility] 07/11/2020 08:15:00 AM EDT [facility] Attender: Phylicia HARTLEY [email or web address] 0 12:00:00 AM EDT - 03/29/2020 10:20:34 AM EDT [facility] Outpatient Attender: BRAD SANCHEZ [facility] 02/12 10:40:00 AM EDT [facility] ([facility]) Outpatient Attender: Sary ASNCHEZ [facility] 10/10/2019 12:45:00 PM EST [facility] Insurance Providers Payer name Policy type / Coverage type Policy ID Covered green party ID Covered green party's relationship to currie Policy Currie Plan Information SELF PAY ONLY [id number] SP [id number] EMEDNY [id number] SP [id number] MEDICARE [id number] SP [id number] [id number] MEDICAID [id number] Brittany [id number] MEDICARE [id number] Brittany [id number] Y22 MEDICAID [id number] SP [id number] Medicaid Medigap Part B [id number] Self [id number] Medicare Part B Medicare Primary [id number] Self [id number] MEDICARE [id number] SP [id number] Medicaid Medigap Part B [id number] Self [id number] Medicare Part B Medicare Primary [id number] Self [id number] Medicaid Medigap Part B [id number] Self [id number] 13S Medicare Part B Medicare Primary [id number] Self [id number] [place] Part B [id number] Self [id number] [place] Gov't Serv[place] Medicare Primary [id number] Self [id number] Medicaid Medigap Part B [id number] Self [id number] 13S Medicare Part B Medicare Primary [id number] Self [id number] [place] Medig[place] Part B [id number] Self [id number] [place] Gov[place] Serv[place] Medicare Primary [id number] Self [id number] SELF PAY 2 UNAVAILABLE 1 UNAVAILA BLE MEDICARE 4 [id number] 1 [id number] 2C1 [place] 3 [id number] S MEDICARE 4 [id number] 1 [id number] 2C1 MEDICAID S [id number] S [id number] MEDICARE P [id number] S [id number] Surgeries/Procedures Procedure Description Date Indications Data Source(s) FALLS RISK ASSESSMENT DOCUMENTED 07/11/2020 12:00:00 A M EDT [facility] ([facility] ) Results ID Date Data Source [id number] 07/19/2020 03:30:00 PM EDT [facility] ([facility] ) Name Value Range Interpretation Code Description Data Enedelia rce(s) Supporting Document(s) Phenobarbital [Mass/volume] in Serum or Plasma 17.6 UG/ML 15.0-40.0 [facility] ([facility] ) ID Date Data Source [id number] 10/15/2019 01:22:00 PM EST [facility] ([facility]) Name Value Range Interpretation Code Description Data Enedelia rce(s) Supporting Document(s) Phenobarbital [Mass/volume] in Serum or Plasma 18.7 UG/ML 15.0-40.0 [facility] ([facility]) Procedure Vital Signs ID Date Data Source UNK Name Value Range Interpretation Code Description Data Source(s) Respiratory rate 16 /min 16 /min [facility] ( [facility]) Heart rate 76 /min 76 /min [facility] ([facility]) Diastolic blood pressure 80 mm[Hg] 80 mm[Hg] [facility] ([facility]) Systolic blood pressure 122 mm[Hg] 122 mm[Hg] M [facility] ([facility]) Respiratory rate 16 /min 16 /min [facility] ( [facility]) Heart rate 80 /min 80 /min [facility] ([facility]) Diastolic blood pressure 80 mm[Hg] 80 mm[Hg] [facility] ([facility]) Systolic blood pressure 110 mm[Hg] 110 mm[Hg] [facility] ([facility])
[2020-12-07] MEDS ORDERED: BUSP30TA PO (03:07)
[2020-12-07] MEDS ORDERED: FURO20TA2 PO ×2 (03:07→11:10)
[2020-12-07] MEDS ORDERED: PARO40TA3 PO (03:07)
[2020-12-07] MEDS ORDERED: FLOM0.4C39 PO (03:07)
[2020-12-07] MEDS ORDERED: PHEN32.44 PO ×2 (03:07)
[2020-12-07] MEDS ORDERED: LISI-542 PO ×3 (03:07→11:12)
[2020-12-07] MEDS ORDERED: ACET-907 PO (03:19)
[2020-12-07] MEDS ORDERED: GABA-282 PO (03:19)
[2020-12-07] MEDS ORDERED: FERR32TA PO (03:19)
[2020-12-07] MEDS ORDERED: METO25TA4 PO (03:19)
[2020-12-07] MEDS ORDERED: VANCOMYCIN HCL 1,000 MG, VIAL MATE ADAPTER 1 EACH in D5W 250 ML IV SCH (04:00)
[2020-12-07 06:28] VITALS: BP 125/69
--- NOTE | 2020-12-07 06:58 | ECGEPIP ---
[facility] - ED Test Date: 2020-12-06 Pat Name: CED HEARN Department: Room: [place] [address] Gender: Male Crude Tester: : [id number] Requested By: NICO De Order Number: [id number] Reading MD: Harris Avalos Measurements Intervals Farson Rate: 66 P: 23 NE: 201 QRS: -32 QRSD: 114 T: 16 QT: 425 QTc: 446 Interpretive Statements SINUS RHYTHM LEFT AXIS DEVIATION INCOMPLETE RIGHT BUNDLE BRANCH BLOCK NONSPECIFIC T WAVE ABNORMALITY(S) NO PRIORS FOR COMPARISON Electronically Signed on 12-07-2020 6:58:43 EST by Harris Avalos
[2020-12-07 08:00] VITALS: O2SAT 94
[2020-12-07 08:10] LABS: VENOUS BASE EXCESS -4.2 (-2.0-2.0); VENOUS O2 SATURATION 97.3 % (60.0-80.0); VENOUS PARTIAL PRESSURE O2 97.7 mmHg (30.0-50.0); VENOUS PH 7.419 UNITS (7.330-7.430); VENOUS STANDARD HCO3 21.1 MEQ/L; VENOUS TOTAL CO2 19.9 MEQ/L (24.0-28.0)
[2020-12-07] MEDS ORDERED: DEXA6TAB PO (08:19)
[2020-12-07] MEDS ORDERED: LEVO500T3 PO (08:19)
[2020-12-07 08:56] VITALS: BP 141/69
[2020-12-07] MEDS ORDERED: lisinopriL 5 MG TAB PO SCH (09:00)
[2020-12-07] MEDS ORDERED: METOPROLOL TART 25 MG TABLET PO SCH (09:00)
[2020-12-07] MEDS ORDERED: ASPIRIN 81 MG ENTERIC TAB PO SCH (09:00)
[2020-12-07] MEDS ORDERED: TAMSULOSIN 0.4 MG CAP PO SCH (09:00)
[2020-12-07] MEDS ORDERED: DOCUSATE SODIUM 100MG CAPSULE PO SCH (09:00)
[2020-12-07] MEDS ORDERED: FUROSEMIDE 20 MG TAB PO SCH (09:00)
[2020-12-07] MEDS ORDERED: busPIRone 10 MG TAB PO SCH (09:00)
[2020-12-07] MEDS ORDERED: ENOXAPARIN 40MG/0.4ML SYRINGE (J1650 PER 10MG) SC SCH (09:00)
[2020-12-07] MEDS ORDERED: dexameTHASONE 4 MG/ML 1ML VIAL (J1100 PER 1MG) IV SCH (09:00)
[2020-12-07] MEDS ORDERED: LevoFLOXacin IV 500 MG in IV 1 EA IV SCH (09:00)
[2020-12-07] MEDS ORDERED: PARoxetine 20MG TABLET PO SCH (09:00)
[2020-12-07] MEDS ORDERED: GABAPENTIN 300 MG CAP PO SCH (09:00)
[2020-12-07 09:23] LABS: BASO % 0.4 % (0.0-1.0); HEMATOCRIT 41.4 % (42.0-52.0); HEMOGLOBIN 14.5 g/dl (13.5-17.5); LYMPH # 0.4 10^3/uL (1.5-5.0); LYMPH % 16.7 % (24.0-44.0); MEAN CORPUSCULAR HEMOGLOBIN 31.3 pg (27.0-33.0); MEAN CORPUSCULAR VOLUME 89.2 fl (80.0-96.0); MONO # 0.3 10^3/uL (0.0-0.8); MONO % 12.5 % (0.0-5.0); NEUTROPHILS # 1.9 10^3/uL (1.5-8.5); PLATELET COUNT, AUTOMATED 155 10^3/uL (150-450); RED BLOOD COUNT 4.64 10^6/uL (4.30-6.10); WHITE BLOOD COUNT 2.6 10^3/uL (4.0-10.0)
[2020-12-07 09:40] LABS: D-DIMER QUANT 759.59 ng/ml (<500)
[2020-12-07 09:50] LABS: ALBUMIN 3.4 GM/DL (3.2-5.2); ALT/SGPT 49 U/L (12-78); BILIRUBIN,TOTAL 0.3 MG/DL (0.2-1.0); BLOOD UREA NITROGEN 12 MG/DL (7-18); C REACTIVE PROTEIN QUANTITATIV 8.76 MG/DL (0.00-0.30); CARBON DIOXIDE LEVEL 24 MEQ/L (21-32); CHLORIDE LEVEL 100 MEQ/L (98-107); CREATININE FOR GFR 0.84 MG/DL (0.70-1.30); FERRITIN 933 NG/ML (26-388); GLOMERULAR FILTRATION RATE > 60.0 (>49); GLUCOSE, FASTING 130 MG/DL (70-100); LDH LACTATE DEHYDROGENASE 265 U/L (87-241); MAGNESIUM LEVEL 2.1 MG/DL (1.8-2.4); POTASSIUM SERUM 3.9 MEQ/L (3.5-5.1); SODIUM LEVEL 134 MEQ/L (136-145); TOTAL PROTEIN 6.5 GM/DL (6.4-8.2)
[2020-12-07] MEDS ORDERED: REMDESIVIR 200 MG in NS 250 ML IV ONE (10:00)
--- NOTE | 2020-12-07 11:15 | DS.PDOC ---
Discharge Summary General Date of Admission Dec 07, 2020 at 00:52 Date of Discharge 12/07/2020 Discharge Summary PROCEDURES PERFORMED DURING STAY: [None]. ADMITTING DIAGNOSES / DISCHARGE DIAGNOSES: Weakness - likely 2/2 Viral illness COVID19 Hyponatremia Pulmonary HTN / Severe mitral regurgitation Seizure disorder HTN Developmental disorder DVT prophylaxis COMPLICATIONS/CHIEF COMPLAINT: Weakness HISTORY OF PRESENT ILLNESS: Patient is a 65-year-old male with a developmental disability and a PMHx of Pulm HTN, Severe mitral regurgitation, Seizure disorder, who presented to the ER from [facility] because patient has been less active. Patient was reported to have saturations in the 80s. Patient was admitted to the hospital service for further evaluation and treatment. HOSPITAL COURSE: Weakness - likely 2/2 Viral illness - Cleared physical therapy / home safety evaluation COVID19 - Currently patient is astigmatic - Saturations have remained greater than 90% throughout the duration of his hospital stay without supplemental oxygen - Inflammatory markers noted - Imaging noted - Will c/w Levofloxacin on discharge; PCT negative - c/w Dexamethasone on discharge - Encourage more ambulation and increased PO intake Hyponatremia - Improving - Will hold Furosemide for additional 2 days Pulmonary HTN / Severe mitral regurgitation - Will resume Lisinopril on discharge - Will resume Lasix in 2 days Seizure disorder - c/w phenobarbital HTN - BP well controlled - Will resume Lisinopril on discharge - Will resume Lasix in 2 days - c/w metoprolol Developmental disorder - c/w Buspirone & paroxetine - c/w Bedside sitter DVT prophylaxis - c/w Lovenox and ASA DISCHARGE MEDICATIONS: Please see below. ALLERGIES: Please see below. PHYSICAL EXAMINATION ON DISCHARGE: Vitals (See below) General: Lying in bed, patient is in no acute distress and appears very comfortable, is awake and alert, nonverbal at baseline HEENT: NC, AT CVS: +S1S2 Lungs: Fair air entry b/l, no appreciable wheezing, rhonchi or rales Abdomen: Soft, ND, NT Extremities: No evidence of edema, - Calf tenderness LABORATORY DATA: Please see below. IMAGING: CXR 12/06: Subtle hazy opacities in the lungs bilaterally. Pneumonia cannot be excluded. ACTIVITY: [As tolerated]. DISCHARGE PLAN: Follow-up with primary care provider within the next 7 days Remain compliant with treatment plan and medications Return to the ER if you experience any problems DISPOSITION: [facility] DISCHARGE CONDITION: [Stable]. TIME SPENT ON DISCHARGE: 35 minutes. Vital Signs/I&Os Vital Signs Date Time Temp Pulse Resp B/P (MAP) Pulse Ox O2 Delivery O2 Flow Rate FiO2 12/07/20 08:56 141/69 12/07/20 08:00 94 Room Air 12/07/20 08:00 98.2 12/07/20 06:28 72 20 I&O- Last 24 Hours up to 6 AM 12/07/20 06:00 Intake Total 545 ml Balance 545 ml Laboratory Data Labs 24H Laboratory Tests 2 12/06/20 22:36: Procalcitonin 0.05 12/06/20 22:37: Immature Granulocyte % (Auto) 0.6, Neutrophils (%) (Auto) 64.3, Lymphocytes (%) (Auto) 21.7L, Monocytes (%) (Auto) 12.5H, Eosinophils (%) (Auto) 0.3, Basophils (%) (Auto) 0.6, Neutrophils # (Auto) 2.3, Lymphocytes # (Auto) 0.8L, Monocytes # (Auto) 0.4, Eosinophils # (Auto) 0.0, Basophils # (Auto) 0.0, Nucleated Red Blood Cells % (auto) 0.0, Prothrombin Time 12.8, Prothromb Time International Ratio 0.94, D-Dimer, Quantitative 621.68H, Anion Gap 11, Glomerular Filtration Rate > 60.0, Calcium Level 7.8L, Ferritin 867H, Total Bilirubin 0.3, Direct Bilirubin 0.1, Aspartate Amino Transf (AST/SGOT) 39H, Alanine Aminotransferase (ALT/SGPT) 47, Alkaline Phosphatase 73, Lactate Dehydrogenase 209, Total Creatine Kinase 268, Creatine Kinase MB 4.1H, Creatine Kinase MB Relative Index 1.53, Troponin I < 0.02, C-Reactive Protein, Quantitative 9.41H, VR-Iea-B-Type Natriuretic Peptide 514H, Total Protein 6.4, Albumin 3.4, Albumin/Globulin Ratio 1.1, Thyroid Stimulating Hormone (TSH) 4.680H, Thyroxine (T4) 8.5 12/06/20 22:43: SARS Antigen (LFIA) POSITIVEH 12/07/20 01:53: Lactate Dehydrogenase 229, C-Reactive Protein, Quantitative 8.54H, Osmolality 274L 12/07/20 07:46: Blood Gas Bicarbonate Standard 21.1, Venous Blood pH 7.419, Venous Blood Partial Pressure CO2 30.0L, Venous Blood Partial Pressure O2 97.7H, Venous Blood Total Carbon Dioxide 19.9L, Venous Blood HCO3 19.0L, Venous Blood Oxygen Saturation 97.3H, Venous Blood Base Excess -4.2L 12/07/20 09:06: Anion Gap 10, Glomerular Filtration Rate > 60.0, Calcium Level 8.0L, Magnesium Level 2.1, Ferritin 933H, Total Bilirubin 0.3, Aspartate Amino Transf (AST/SGOT) 46H, Alanine Aminotransferase (ALT/SGPT) 49, Alkaline Phosphatase 75, Lactate Dehydrogenase 265H, C-Reactive Protein, Quantitative 8.76H, Total Protein 6.5, Albumin 3.4, Albumin/Globulin Ratio 1.1, Procalcitonin <0.05 12/07/20 09:12: Immature Granulocyte % (Auto) 0.4, Neutrophils (%) (Auto) 70.0H, Lymphocytes (%) (Auto) 16.7L, Monocytes (%) (Auto) 12.5H, Eosinophils (%) (Auto) 0.0, Basophils (%) (Auto) 0.4, Neutrophils # (Auto) 1.9, Lymphocytes # (Auto) 0.4L, Monocytes # (Auto) 0.3, Eosinophils # (Auto) 0.0, Basophils # (Auto) 0.0, Nucleated Red B lood Cells % (auto) 0.0, Fibrinogen 338, D-Dimer, Quantitative 759.59H CBC/BMP Laboratory Tests 12/06/20 22:37 12/07/20 09:06 12/07/20 09:12 Microbiology Microbiology 12/06/20 Blood Culture, Received Pending 12/06/20 Blood Culture, Received Pending Discharge Medications Scheduled Aspirin (Aspirin) 325 Mg Tab, 325 MG PO DAILY, (Reported) Buspirone HCl (Buspirone HCl) 30 Mg Tablet, 30 MG PO BID, (Reported) 0830, 1600 Dexamethasone (Dexamethasone) 6 Mg Tablet, 1 TAB PO DAILY Docusate Sodium (Stool Softener) 100 Mg Cap, 100 MG PO BID, (Reported) Ferrous Gluconate (Ferrous Gluconate) 324 Mg Tablet, 324 MG PO BID, (Reported) Furosemide (Furosemide) 20 Mg Tablet, 20 MG PO DAILY, (Reported) Gabapentin (Gabapentin) 300 Mg Capsule, 300 MG PO TID, (Reported) Levofloxacin (Levofloxacin) 500 Mg Tablet, 1 TAB PO DAILY Lisinopril (Lisinopril) 5 Mg Tablet, 5 MG PO DAILY, (Reported) Metoprolol Tartrate (Metoprolol Tartrate) 25 Mg Tablet, 12.5 MG PO BID, (Reported) Paroxetine HCl (Paroxetine) 40 Mg Tablet, 40 MG PO DAILY, (Reported) Phenobarbital (Phenobarbital) 32.4 Mg Tablet, 32.4 MG PO DAILY, (Reported) Phenobarbital (Phenobarbital) 32.4 Mg Tablet, 64.8 MG PO QHS, (Reported) Tamsulosin HCl (Flomax) 0.4 Mg Capsule, 0.4 MG PO DAILY, (Reported) Scheduled PRN Acetaminophen (Tylenol) 325 Mg Tablet, 650 MG PO Q4H PRN for PAIN / FEVER, (Reported) Allergies Coded Allergies: azithromycin (Verified Allergy, Severe, 12/06/20) Pertussis Vaccines (Verified Allergy, Intermediate, 12/06/20) doxycycline (Verified Allergy, Intermediate, 12/06/20) MICHAEL CORDOBA MD Dec 07, 2020 11:15
[2020-12-07] MEDS ORDERED: SODIUM CHLORIDE 0.9% INJ 10 ML SYR IV ONE (12:00)
[2020-12-07] MEDS ORDERED: PHENobarbitaL 30 MG TAB PO SCH (21:00)
[2020-12-08] MEDS ORDERED: REMDESIVIR 100 MG in NS 250 ML IV SCH (10:00)
[2020-12-08] MEDS ORDERED: SODIUM CHLORIDE 0.9% INJ 10 ML SYR IV SCH (11:00)
== END 2020-12-07 16:29 | disposition home or self-care (01) | DRG 178 ==
LOC: M ED 21:16 → M ED INP 12-07 00:52 → M ICU 12-07 06:49
PROVIDERS: ADMIT Internal Medicine; ATTEND Internal Medicine
DX: U07.1 COVID-19 (principal); E87.1 Hypo-osmolality and hyponatremia; I27.20 Pulmonary hypertension, unspecified; I34.0 Nonrheumatic mitral (valve) insufficiency; G40.909 Epilepsy, unspecified, not intractable, without status epilepticus; F79 Unspecified intellectual disabilities; Z90.49 Acquired absence of other specified parts of digestive tract; R26.81 Unsteadiness on feet; Z79.82 Long term (current) use of aspirin; Z79.899 Other long term (current) drug therapy; Z88.1 Allergy status to other antibiotic agents; Z88.7 Allergy status to serum and vaccine

== ENCOUNTER → 2020-12-06 | Outpatient (CLI) | payer SELFPAY ==
[~2020-12-06] MED LIST changes: +ACET-907 PO; +ACET1TAB55 PO; +DEXA6TAB PO; +FERR32TA PO; +FURO20TA2 PO; +GABA-282 PO; +LEVO500T3 PO; +LISI-542 PO; +METO25TA4 PO; +PARO40TA3 PO; +PHEN32.44; +PHEN32.44 PO
== END ==
LOC: M LABSMTC 12:35
PROVIDERS: ATTEND Pediatrics
DX: Z20.822 Contact with and (suspected) exposure to COVID-19 (principal)

== ENCOUNTER → 2021-01-23 | Outpatient (CLI) | payer MEDICARE, MEDICAID ==
[~2021-01-23] MED LIST changes: +ACET-907 PO; +ACET1TAB55 PO; +DEXA6TAB PO; +FERR32TA PO; +FURO20TA2 PO; +GABA-282 PO; +LEVO500T3 PO; +LISI-898 PO; +METO25TA4 PO; +PARO40TA3 PO; +PHEN32.44; +PHEN32.44 PO
== END ==
LOC: M LAB 07:00
PROVIDERS: ATTEND Physician Assistant Medical
DX: R56.9 Unspecified convulsions (principal)

== ENCOUNTER → 2021-01-23 | Outpatient (CLI) | payer MEDICARE, MEDICAID ==
[2021-01-23 07:59] LABS: BASO # 0.1 10^3/uL (0.0-0.2); BASO % 1.4 % (0.0-1.0); EOS # 0.1 10^3/uL (0.0-0.5); EOS % 2.6 % (0.0-3.0); HEMATOCRIT 44.4 % (42.0-52.0); LYMPH # 1.3 10^3/uL (1.5-5.0); LYMPH % 26.6 % (24.0-44.0); MEAN CORPUSCULAR HEMOGLOBIN 32.3 pg (27.0-33.0); MEAN CORPUSCULAR HGB CONC 33.8 g/dl (32.0-36.5); MEAN CORPUSCULAR VOLUME 95.5 fl (80.0-96.0); MONO # 0.5 10^3/uL (0.0-0.8); MONO % 9.6 % (2.0-8.0); NEUTROPHILS # 2.9 10^3/uL (1.5-8.5); NEUTROPHILS % 59.4 % (36.0-66.0); PLATELET COUNT, AUTOMATED 251 10^3/uL (150-450); RED BLOOD COUNT 4.65 10^6/uL (4.30-6.10); WHITE BLOOD COUNT 4.9 10^3/uL (4.0-10.0)
[2021-01-23 08:24] LABS: ALBUMIN 3.8 GM/DL (3.2-5.2); ALT/SGPT 15 U/L (12-78); BILIRUBIN,TOTAL 0.3 MG/DL (0.2-1.0); BLOOD UREA NITROGEN 11 MG/DL (7-18); CALCIUM LEVEL 8.6 MG/DL (8.8-10.2); CARBON DIOXIDE LEVEL 29 MEQ/L (21-32); CHLORIDE LEVEL 107 MEQ/L (98-107); CREATININE FOR GFR 0.71 MG/DL (0.70-1.30); GLOMERULAR FILTRATION RATE > 60.0 (>49); GLUCOSE, FASTING 91 MG/DL (70-100); POTASSIUM SERUM 4.1 MEQ/L (3.5-5.1); SODIUM LEVEL 141 MEQ/L (136-145); TOTAL PROTEIN 6.8 GM/DL (6.4-8.2)
== END ==
LOC: M LAB 06:56
PROVIDERS: ATTEND Family Medicine
DX: J12.81 Pneumonia due to SARS-associated coronavirus (principal); R56.9 Unspecified convulsions

== ENCOUNTER → 2021-06-07 | Outpatient (CLI) | payer MEDICARE, MEDICAID ==
[~2021-06-07] MED LIST changes: +GABA-283 PO; -GABA-845 PO
[2021-06-07 11:39] LABS: BASO # 0.1 10^3/uL (0.0-0.2); BASO % 1.2 % (0.0-1.0); EOS # 0.2 10^3/uL (0.0-0.5); EOS % 2.8 % (0.0-3.0); HEMATOCRIT 46.3 % (42.0-52.0); HEMOGLOBIN 15.6 g/dl (13.5-17.5); LYMPH # 1.5 10^3/uL (1.5-5.0); LYMPH % 25.3 % (24.0-44.0); MEAN CORPUSCULAR HEMOGLOBIN 31.7 pg (27.0-33.0); MEAN CORPUSCULAR HGB CONC 33.7 g/dl (32.0-36.5); MEAN CORPUSCULAR VOLUME 94.1 fl (80.0-96.0); MONO # 0.6 10^3/uL (0.0-0.8); MONO % 10.6 % (2.0-8.0); NEUTROPHILS # 3.4 10^3/uL (1.5-8.5); NEUTROPHILS % 59.8 % (36.0-66.0); PLATELET COUNT, AUTOMATED 288 10^3/uL (150-450); RED BLOOD COUNT 4.92 10^6/uL (4.30-6.10); WHITE BLOOD COUNT 5.7 10^3/uL (4.0-10.0)
[2021-06-07 12:13] LABS: ALBUMIN 3.9 GM/DL (3.2-5.2); ALT/SGPT 16 U/L (12-78); BILIRUBIN,TOTAL 0.3 MG/DL (0.2-1.0); BLOOD UREA NITROGEN 8 MG/DL (7-18); CALCIUM LEVEL 8.9 MG/DL (8.8-10.2); CARBON DIOXIDE LEVEL 29 MEQ/L (21-32); CHLORIDE LEVEL 107 MEQ/L (98-107); CREATININE FOR GFR 0.86 MG/DL (0.70-1.30); GLOMERULAR FILTRATION RATE > 60.0 (>49); GLUCOSE, FASTING 76 MG/DL (70-100); PHENOBARBITAL LEVEL 16.7 UG/ML (15.0-40.0); POTASSIUM SERUM 4.3 MEQ/L (3.5-5.1); SODIUM LEVEL 142 MEQ/L (136-145); TOTAL PROTEIN 6.9 GM/DL (6.4-8.2)
== END ==
LOC: M WUC 08:59
PROVIDERS: ATTEND Physician Assistant Medical
DX: R56.9 Unspecified convulsions (principal); Z51.81 Encounter for therapeutic drug level monitoring; Z79.899 Other long term (current) drug therapy

== ENCOUNTER → 2021-10-08 | Outpatient (CLI) | payer MEDICARE, MEDICAID ==
[~2021-10-08] MED LIST changes: -LEVO500T3 PO; +LEVO500T4 PO; -LISI-898 PO; +LISI5TAB11 PO
[2021-10-08 06:53] LABS: HEMOGLOBIN 14.5 g/dl (13.5-17.5); MEAN CORPUSCULAR HEMOGLOBIN 31.5 pg (27.0-33.0); MEAN CORPUSCULAR HGB CONC 33.7 g/dl (32.0-36.5); MEAN CORPUSCULAR VOLUME 93.5 fl (80.0-96.0); PLATELET COUNT, AUTOMATED 268 10^3/uL (150-450); WHITE BLOOD COUNT 5.9 10^3/uL (4.0-10.0)
[2021-10-08 07:25] LABS: ALBUMIN 3.4 GM/DL (3.2-5.2); ALT/SGPT 20 U/L (12-78); BILIRUBIN,TOTAL 0.4 MG/DL (0.2-1.0); BLOOD UREA NITROGEN 8 MG/DL (7-18); CALCIUM LEVEL 8.4 MG/DL (8.8-10.2); CARBON DIOXIDE LEVEL 28 MEQ/L (21-32); CHLORIDE LEVEL 108 MEQ/L (98-107); CHOLESTEROL LEVEL 150 MG/DL (<200); CHOLESTEROL RISK RATIO 2.777 (<5); CREATININE FOR GFR 0.87 MG/DL (0.70-1.30); GLOMERULAR FILTRATION RATE > 60.0 (>49); GLUCOSE, FASTING 90 MG/DL (70-100); HDL CHOLESTEROL 54 MG/DL (>40); LDL CHOLESTEROL 70 MG/DL (<100); NON-HDL-C 96 MG/DL; PHENOBARBITAL LEVEL 18.3 UG/ML (15.0-40.0); POTASSIUM SERUM 4.2 MEQ/L (3.5-5.1); PROSTATIC SPECIFIC AG MONITOR 2.25 NG/ML (< 4.00); SODIUM LEVEL 142 MEQ/L (136-145); TOTAL PROTEIN 6.5 GM/DL (6.4-8.2); TRIGLYCERIDES LEVEL 130 MG/DL (<150)
== END ==
LOC: M LAB 06:28
PROVIDERS: ATTEND Family Medicine
DX: Z79.899 Other long term (current) drug therapy (principal)

== ENCOUNTER 2021-12-01 18:05 | Emergency (ER) | payer MEDICARE, MEDICAID ==
[2021-12-01] MEDS ORDERED: NEOSPORIN OINT 0.9 GM PKT TOP ONE (21:40)
[2021-12-01 22:02] VITALS: BP 128/70
== END 2021-12-01 22:05 | disposition home or self-care (01) ==
LOC: M ED 18:05 → EDBD 18:05 → EDSEX 18:05 → M ED 22:05
DX: S00.01XA Abrasion of scalp, initial encounter (principal); S00.31XA Abrasion of nose, initial encounter; S40.212A Abrasion of left shoulder, initial encounter; S00.33XA Contusion of nose, initial encounter; W10.8XXA Fall (on) (from) other stairs and steps, initial encounter; Y92.89 Other specified places as the place of occurrence of the external cause; I50.9 Heart failure, unspecified; I27.20 Pulmonary hypertension, unspecified; F41.9 Anxiety disorder, unspecified; R56.9 Unspecified convulsions; F79 Unspecified intellectual disabilities; Z88.1 Allergy status to other antibiotic agents; Z88.7 Allergy status to serum and vaccine; Z79.899 Other long term (current) drug therapy; Z79.82 Long term (current) use of aspirin

== ENCOUNTER → 2022-04-29 | Outpatient (CLI) | payer MEDICARE, MEDICAID ==
[2022-04-29 07:29] LABS: BASO # 0.1 10^3/uL (0.0-0.2); BASO % 1.1 % (0.0-1.0); EOS # 0.2 10^3/uL (0.0-0.5); HEMATOCRIT 46.1 % (42.0-52.0); HEMOGLOBIN 15.5 g/dl (13.5-17.5); LYMPH # 1.4 10^3/uL (1.5-5.0); LYMPH % 25.5 % (24.0-44.0); MEAN CORPUSCULAR HGB CONC 33.6 g/dl (32.0-36.5); MEAN CORPUSCULAR VOLUME 95.1 fl (80.0-96.0); MONO # 0.5 10^3/uL (0.0-0.8); NEUTROPHILS # 3.3 10^3/uL (1.5-8.5); NEUTROPHILS % 61.2 % (36.0-66.0); PLATELET COUNT, AUTOMATED 226 10^3/uL (150-450); RED BLOOD COUNT 4.85 10^6/uL (4.30-6.10); WHITE BLOOD COUNT 5.3 10^3/uL (4.0-10.0)
[2022-04-29 08:06] LABS: ALBUMIN 3.7 GM/DL (3.2-5.2); ALT/SGPT 15 U/L (12-78); BILIRUBIN,TOTAL 0.3 MG/DL (0.2-1.0); BLOOD UREA NITROGEN 14 MG/DL (7-18); CALCIUM LEVEL 9.1 MG/DL (8.8-10.2); CARBON DIOXIDE LEVEL 29 MEQ/L (21-32); CHLORIDE LEVEL 107 MEQ/L (98-107); CREATININE FOR GFR 0.88 MG/DL (0.70-1.30); GLOMERULAR FILTRATION RATE > 60.0 (>49); GLUCOSE, FASTING 93 MG/DL (70-100); PHENOBARBITAL LEVEL 19.5 UG/ML (15.0-40.0); POTASSIUM SERUM 4.3 MEQ/L (3.5-5.1); SODIUM LEVEL 142 MEQ/L (136-145); TOTAL PROTEIN 6.4 GM/DL (6.4-8.2)
== END ==
LOC: M LAB 07:03
PROVIDERS: ATTEND Physician Assistant Medical
DX: R56.9 Unspecified convulsions (principal); Z79.899 Other long term (current) drug therapy

== ENCOUNTER → 2023-04-07 | Outpatient (CLI) | payer MEDICARE, MEDICAID ==
[~2023-04-07] MED LIST changes: +LEVO1TAB39 PO; -LEVO500T4 PO
[2023-04-07 11:17] LABS: BLOOD UREA NITROGEN 13 MG/DL (9-23); CALCIUM LEVEL 8.1 MG/DL (8.3-10.6); CARBON DIOXIDE LEVEL 30 MMOL/L (20-31); CHLORIDE LEVEL 105 MMOL/L (98-107); CHOLESTEROL LEVEL 139 MG/DL (<200); CREATININE FOR GFR 0.98 MG/DL (0.70-1.30); GLOMERULAR FILTRATION RATE > 60.0 (>49); GLUCOSE, FASTING 85 MG/DL (74-106); HDL CHOLESTEROL 57.7 MG/DL (>40); LDL CHOLESTEROL 62.3 MG/DL (<100); NON-HDL-C 81.3 MG/DL; SODIUM LEVEL 141 MMOL/L (136-145); TRIGLYCERIDES LEVEL 95 MG/DL (<150)
== END ==
LOC: M WUC 08:17
PROVIDERS: ATTEND Nurse Practitioner Family
DX: I10 Essential (primary) hypertension (principal)

== ENCOUNTER → 2023-05-24 | Outpatient (CLI) | payer MEDICARE, MEDICAID ==
[2023-05-24 09:13] LABS: BASO # 0.1 10^3/uL (0.0-0.2); BASO % 1.1 % (0.0-1.0); EOS # 0.1 10^3/uL (0.0-0.5); EOS % 2.8 % (0.0-3.0); HEMATOCRIT 46.5 % (42.0-52.0); LYMPH # 1.1 10^3/uL (1.5-5.0); LYMPH % 23.4 % (24.0-44.0); MEAN CORPUSCULAR HEMOGLOBIN 32.3 pg (27.0-33.0); MEAN CORPUSCULAR HGB CONC 34.4 g/dl (32.0-36.5); MEAN CORPUSCULAR VOLUME 93.8 fl (80.0-96.0); MONO # 0.4 10^3/uL (0.0-0.8); MONO % 9.2 % (2.0-8.0); NEUTROPHILS # 2.9 10^3/uL (1.5-8.5); NEUTROPHILS % 63.1 % (36.0-66.0); PLATELET COUNT, AUTOMATED 234 10^3/uL (150-450); RED BLOOD COUNT 4.96 10^6/uL (4.30-6.10); WHITE BLOOD COUNT 4.7 10^3/uL (4.0-10.0)
[2023-05-24 09:29] LABS: PHENOBARBITAL LEVEL 21.3 UG/ML (15.0-40.0)
[2023-05-24 09:31] LABS: ALBUMIN 3.8 G/DL (3.2-5.2); ALKALINE PHOSPHATASE 114 U/L (46-116); ALT/SGPT < 9 U/L (7.0-40); AST/SGOT < 8 U/L (<34); BILIRUBIN,TOTAL 0.5 MG/DL (0.3-1.2); BLOOD UREA NITROGEN 14 MG/DL (9-23); CALCIUM LEVEL 8.9 MG/DL (8.3-10.6); CARBON DIOXIDE LEVEL 28 MMOL/L (20-31); CHLORIDE LEVEL 104 MMOL/L (98-107); CREATININE FOR GFR 0.88 MG/DL (0.70-1.30); GLOMERULAR FILTRATION RATE > 60.0 (>49); GLUCOSE, FASTING 91 MG/DL (74-106); POTASSIUM SERUM 4.2 MMOL/L (3.5-5.1); SODIUM LEVEL 140 MMOL/L (136-145); TOTAL PROTEIN 6.5 G/DL (5.7-8.2)
== END ==
LOC: M LAB 08:13
PROVIDERS: ATTEND Psychiatry & Neurology Neurology
DX: R56.9 Unspecified convulsions (principal)

== ENCOUNTER → 2023-10-10 | Outpatient (CLI) | payer MEDICARE, MEDICAID ==
[~2023-10-10] MED LIST changes: -GABA-283 PO; +GABA-284 PO
[2023-10-10 09:41] LABS: BASO # 0.1 10^3/uL (0.0-0.2); EOS # 0.2 10^3/uL (0.0-0.5); HEMATOCRIT 44.5 % (42.0-52.0); HEMOGLOBIN 15.1 g/dl (13.5-17.5); LYMPH % 19.7 % (24.0-44.0); MEAN CORPUSCULAR HGB CONC 33.9 g/dl (32.0-36.5); MEAN CORPUSCULAR VOLUME 94.3 fl (80.0-96.0); MONO # 0.5 10^3/uL (0.0-0.8); MONO % 10.4 % (2.0-8.0); NEUTROPHILS # 3.3 10^3/uL (1.5-8.5); NEUTROPHILS % 65.7 % (36.0-66.0); PLATELET COUNT, AUTOMATED 218 10^3/uL (150-450); RED BLOOD COUNT 4.72 10^6/uL (4.30-6.10)
[2023-10-10 10:10] LABS: ALBUMIN 3.5 G/DL (3.2-5.2); ALKALINE PHOSPHATASE 112 U/L (46-116); ALT/SGPT 10 U/L (7.0-40); AST/SGOT 11 U/L (<34); BILIRUBIN,TOTAL 0.4 MG/DL (0.3-1.2); BLOOD UREA NITROGEN 14 MG/DL (9-23); CALCIUM LEVEL 8.4 MG/DL (8.3-10.6); CARBON DIOXIDE LEVEL 29 MMOL/L (20-31); CHLORIDE LEVEL 105 MMOL/L (98-107); CHOLESTEROL LEVEL 151 MG/DL (<200); CHOLESTEROL RISK RATIO 2.76 (<5); CREATININE FOR GFR 0.94 MG/DL (0.70-1.30); GLOMERULAR FILTRATION RATE > 60.0 (>49); GLUCOSE, FASTING 92 MG/DL (74-106); HDL CHOLESTEROL 54.6 MG/DL (>40); NON-HDL-C 96.4 MG/DL; POTASSIUM SERUM 4.4 MMOL/L (3.5-5.1); PROSTATIC SPECIFIC AG MONITOR 1.33 NG/ML (< 4.00); SODIUM LEVEL 139 MMOL/L (136-145); TOTAL PROTEIN 6.2 G/DL (5.7-8.2); TRIGLYCERIDES LEVEL 97 MG/DL (<150)
[2023-10-10 11:02] LABS: PHENOBARBITAL LEVEL 19.9 UG/ML (15.0-40.0)
== END ==
LOC: M LAB 08:20
PROVIDERS: ATTEND Family Medicine
DX: Z12.5 Encounter for screening for malignant neoplasm of prostate (principal); Z79.899 Other long term (current) drug therapy

== ENCOUNTER → 2024-03-12 | Outpatient (REF) | payer MEDICARE, MEDICAID ==
[2024-03-12 16:38] LABS: APPEARANCE, URINE HAZY (CLEAR); BACTERIA, URINE AUTO NEGATIVE (NEGATIVE); BILIRUBIN, URINE AUTO NEGATIVE (NEGATIVE); BLOOD, URINE BLOOD NEGATIVE (NEGATIVE); COLOR, URINE YELLOW (YELLOW); GLUCOSE, URINE (UA) AUTO NEGATIVE (NEGATIVE); KETONE, URINE AUTO NEGATIVE (NEGATIVE); LEUKOCYTE ESTERASE, URINE AUTO TRACE (NEGATIVE); MUCUS, URINE SMALL (NEGATIVE); NITRITE, URINE AUTO NEGATIVE (NEGATIVE); PROTEIN, URINE AUTO NEGATIVE (NEGATIVE); RBC, URINE AUTO 0 /HPF (0-3); SPECIFIC GRAVITY URINE AUTO 1.014 (1.002-1.035); SQUAMOUS EPITHELIAL CELL UR AU 1 /HPF (0-6); UROBILINOGEN, URINE AUTO 0.2 mg/dL (0.0-2.0); WBC, URINE AUTO 22 /HPF (0-3)
== END ==
LOC: M LAB REF 16:18
PROVIDERS: ATTEND Family Medicine
DX: R30.0 Dysuria (principal)

== ENCOUNTER → 2024-04-14 | Outpatient (CLI) | payer MEDICARE, MEDICAID ==
[2024-04-14 16:24] LABS: APPEARANCE, URINE CLEAR (CLEAR); BACTERIA, URINE AUTO NEGATIVE (NEGATIVE); BILIRUBIN, URINE AUTO NEGATIVE (NEGATIVE); BLOOD, URINE BLOOD NEGATIVE (NEGATIVE); COLOR, URINE STRAW (YELLOW); GLUCOSE, URINE (UA) AUTO NEGATIVE (NEGATIVE); KETONE, URINE AUTO NEGATIVE (NEGATIVE); LEUKOCYTE ESTERASE, URINE AUTO NEGATIVE (NEGATIVE); NITRITE, URINE AUTO NEGATIVE (NEGATIVE); PROTEIN, URINE AUTO NEGATIVE (NEGATIVE); RBC, URINE AUTO 0 /HPF (0-3); SPECIFIC GRAVITY URINE AUTO 1.008 (1.002-1.035); SQUAMOUS EPITHELIAL CELL UR AU 1 /HPF (0-6); UROBILINOGEN, URINE AUTO 0.2 mg/dL (0.0-2.0); WBC, URINE AUTO 1 /HPF (0-3)
[2024-04-14 16:28] LABS: BASO % 0.6 % (0.0-1.0); EOS # 0.2 10^3/uL (0.0-0.5); EOS % 2.3 % (0.0-3.0); HEMATOCRIT 45.3 % (42.0-52.0); HEMOGLOBIN 15.3 g/dl (13.5-17.5); LYMPH # 1.5 10^3/uL (1.5-5.0); LYMPH % 23.4 % (24.0-44.0); MEAN CORPUSCULAR HEMOGLOBIN 32.6 pg (27.0-33.0); MEAN CORPUSCULAR HGB CONC 33.8 g/dl (32.0-36.5); MEAN CORPUSCULAR VOLUME 96.4 fl (80.0-96.0); MONO # 0.6 10^3/uL (0.0-0.8); MONO % 9.4 % (2.0-8.0); NEUTROPHILS # 4.2 10^3/uL (1.5-8.5); NEUTROPHILS % 64.1 % (36.0-66.0); PLATELET COUNT, AUTOMATED 293 10^3/uL (150-450); WHITE BLOOD COUNT 6.5 10^3/uL (4.0-10.0)
[2024-04-14 16:59] LABS: ALBUMIN 3.8 G/DL (3.2-5.2); ALKALINE PHOSPHATASE 96 U/L (46-116); ALT/SGPT 13 U/L (7.0-40); AST/SGOT 9 U/L (<34); BILIRUBIN,TOTAL 0.4 MG/DL (0.3-1.2); BLOOD UREA NITROGEN 9 MG/DL (9-23); CALCIUM LEVEL 8.8 MG/DL (8.3-10.6); CARBON DIOXIDE LEVEL 32 MMOL/L (20-31); CHLORIDE LEVEL 103 MMOL/L (98-107); CREATININE FOR GFR 0.86 MG/DL (0.70-1.30); GLOMERULAR FILTRATION RATE > 60.0 (>49); GLUCOSE, FASTING 104 MG/DL (74-106); POTASSIUM SERUM 4.2 MMOL/L (3.5-5.1); SODIUM LEVEL 139 MMOL/L (136-145); TOTAL PROTEIN 6.4 G/DL (5.7-8.2)
[2024-04-14 17:01] LABS: PHENOBARBITAL LEVEL 21.6 UG/ML (15.0-40.0)
== END ==
LOC: M WUC 14:25
PROVIDERS: ATTEND Family Medicine
DX: G40.909 Epilepsy, unspecified, not intractable, without status epilepticus (principal); R26.81 Unsteadiness on feet; Z79.899 Other long term (current) drug therapy

== ENCOUNTER → 2024-11-25 | Outpatient (CLI) | payer MEDICARE, MEDICAID ==
[~2024-11-25] MED LIST changes: +GABA-1172 PO; -GABA-282 PO
[2024-11-25 07:38] LABS: BASO # 0.1 10^3/uL (0.0-0.2); BASO % 1.4 % (0.0-1.0); EOS # 0.2 10^3/uL (0.0-0.5); EOS % 3.2 % (0.0-3.0); HEMATOCRIT 44.3 % (42.0-52.0); HEMOGLOBIN 15.4 g/dl (13.5-17.5); LYMPH # 1.2 10^3/uL (1.5-5.0); LYMPH % 23.1 % (24.0-44.0); MEAN CORPUSCULAR HEMOGLOBIN 32.2 pg (27.0-33.0); MEAN CORPUSCULAR HGB CONC 34.8 g/dl (32.0-36.5); MEAN CORPUSCULAR VOLUME 92.5 fl (80.0-96.0); MONO # 0.5 10^3/uL (0.0-0.8); MONO % 10.1 % (2.0-8.0); NEUTROPHILS # 3.1 10^3/uL (1.5-8.5); NEUTROPHILS % 61.8 % (36.0-66.0); PLATELET COUNT, AUTOMATED 251 10^3/uL (150-450); RED BLOOD COUNT 4.79 10^6/uL (4.30-6.10)
[2024-11-25 08:34] LABS: PHENOBARBITAL LEVEL 19.7 UG/ML (15.0-40.0)
[2024-11-25 08:36] LABS: ALBUMIN 3.7 G/DL (3.2-5.2); ALKALINE PHOSPHATASE 108 U/L (40-129); ALT/SGPT 13 U/L (7.0-40); AST/SGOT 14 U/L (<34); BILIRUBIN,TOTAL 0.4 MG/DL (0.3-1.2); BLOOD UREA NITROGEN 16 MG/DL (9-23); CALCIUM LEVEL 8.6 MG/DL (8.3-10.6); CARBON DIOXIDE LEVEL 29 MMOL/L (20-31); CHLORIDE LEVEL 106 MMOL/L (98-107); CREATININE FOR GFR 0.92 MG/DL (0.70-1.30); GLOMERULAR FILTRATION RATE > 60.0 (>42); GLUCOSE, FASTING 96 MG/DL (74-106); POTASSIUM SERUM 4.4 MMOL/L (3.5-5.1); SODIUM LEVEL 142 MMOL/L (136-145); TOTAL PROTEIN 6.6 G/DL (5.7-8.2)
== END ==
LOC: M LAB 07:03
PROVIDERS: ATTEND Psychiatry & Neurology Neurology
DX: R56.9 Unspecified convulsions (principal)

== ENCOUNTER → 2025-05-24 | Outpatient (REF) | payer MEDICARE, MEDICAID ==
[~2025-05-24] MED LIST changes: -FLOM0.4C39 PO; +TAMS-18 PO
[2025-05-24 14:52] LABS: APPEARANCE, URINE CLEAR (CLEAR); BACTERIA, URINE AUTO NEGATIVE (NEGATIVE); BILIRUBIN, URINE AUTO NEGATIVE (NEGATIVE); BLOOD, URINE BLOOD NEGATIVE (NEGATIVE); GLUCOSE, URINE (UA) AUTO NEGATIVE (NEGATIVE); KETONE, URINE AUTO NEGATIVE (NEGATIVE); LEUKOCYTE ESTERASE, URINE AUTO TRACE (NEGATIVE); MUCUS, URINE SMALL (NEGATIVE); NITRITE, URINE AUTO NEGATIVE (NEGATIVE); PROTEIN, URINE AUTO NEGATIVE (NEGATIVE); RBC, URINE AUTO 0 /HPF (0-3); SPECIFIC GRAVITY URINE AUTO 1.010 (1.002-1.035); SQUAMOUS EPITHELIAL CELL UR AU 0 /HPF (0-6); UROBILINOGEN, URINE AUTO 0.2 mg/dL (0.0-2.0); WBC, URINE AUTO 3 /HPF (0-3)
== END ==
LOC: M LAB REF 14:17
PROVIDERS: ATTEND Physician Assistant
DX: N39.0 Urinary tract infection, site not specified (principal); Z60.8 Other problems related to social environment